=== PATIENT | female | born 1945 | race Caucasian/White ===

== ENCOUNTER 2016-11-11 13:58 | Emergency (ER) | payer OTHER ==
[~2016-11-11] VITALS: Ht 165.1 cm; Wt 94.5 kg
[~2016-11-11 13:58] MED LIST: ALBU18HF INH; ASPI-496 PO; ATOR40TA78 PO; BIOTIN PO; CEFD300C37 PO; CHOL100018 PO; CIPR500T87 PO; CITA20TA9 PO; CLOP75TA PO; LACT1CAP40 PO; LEVO175T2 PO; LISI5TAB7 PO; METR500T PO; OMEP-110 PO; PNV#1COM9 PO; POTASSIUM GLUCONATE PO; PRED20TA PO
[2016-11-11 14:05] VITALS: BP 136/74
[2016-11-11] MEDS ORDERED: ACETAMINOPHEN 325 MG TABLET ONE (14:13)
[2016-11-11] MEDS ORDERED: ONDANSETRON ODT 4 MG ONE (14:14)
[2016-11-11] MEDS ORDERED: ACETAMINOPHEN 325 MG TABLET PO ONE (14:30)
[2016-11-11] MEDS ORDERED: ONDANSETRON ODT 4 MG PO ONE (14:30)
== END 2016-11-11 16:19 | disposition home or self-care (01) ==
LOC: ED 14:49
DX: S06.0X0A Concussion without loss of consciousness, initial encounter (principal); S00.93XA Contusion of unspecified part of head, initial encounter; M25.521 Pain in right elbow; I11.9 Hypertensive heart disease without heart failure; J45.909 Unspecified asthma, uncomplicated; I25.10 Atherosclerotic heart disease of native coronary artery without angina pectoris; Z90.49 Acquired absence of other specified parts of digestive tract; Z90.710 Acquired absence of both cervix and uterus; Z90.81 Acquired absence of spleen; W01.0XXA Fall on same level from slipping, tripping and stumbling without subsequent striking against object, initial encounter; Y93.89 Activity, other specified; Y92.009 Unspecified place in unspecified non-institutional (private) residence as the place of occurrence of the external cause; Y99.9 Unspecified external cause status
CPT/HCPCS: 70450; 72125; 99284; Q0162

== ENCOUNTER 2016-11-25 21:54 | Inpatient (IN) | payer OTHER ==
[~2016-11-25] VITALS: Ht 165.1 cm; Wt 103.1 kg
[2016-11-25] MEDS ORDERED: CITA20TA5 PO (22:05)
[2016-11-25] MEDS ORDERED: ONDANSETRON 2MG/ML, 2ML IVPush ONE (22:30)
[2016-11-25] MEDS ORDERED: HYDROmorphone 1 MG/ML, 1ML IVPush PRN (22:30)
[2016-11-25] MEDS ORDERED: SODIUM CHLORIDE 0.9% 1,000ML IVBOLUS ONE (22:30)
[2016-11-25] MEDS ORDERED: ONDANSETRON 2MG/ML, 2ML ONE (22:41)
[2016-11-25] MEDS ORDERED: MORPHINE SULFATE 4 MG/ML, 1ML ONE (22:42)
[2016-11-25] MEDS ORDERED: HYDROmorphone 1 MG/ML, 1ML ONE (22:54)
[2016-11-25 23:05] LABS: BLOOD UREA NITROGEN 24 mg/dL (7-18)
[2016-11-25 23:12] LABS: ASPARTATE AMINO TRANSFERASE 16 U/L (15-37)
[2016-11-25 23:14] LABS: DIFF TOTAL CELLS COUNTED 100 CELL DIFF
[2016-11-25 23:16] LABS: IS PT STATUS REG ER OR PRE ER? YES
[2016-11-25 23:17] LABS: VERIFY COUNTS? YES
[2016-11-25 23:19] LABS: PATH.CAST-FLAG NOT PRESENT; SPERM-FLAG NOT PRESENT; SRC-FLAG NOT PRESENT; XTAL-FLAG NOT PRESENT; YLC-FLAG NOT PRESENT
[2016-11-25 23:19] LABS: ANISOCYTOSIS 1+; MICROCYTOSIS 1+; OVALOCYTES 1+; POIKILOCYTOSIS 1+; POLYCHROMASIA 1+
[2016-11-25] MEDS ORDERED: OMNIPAQUE 350 MG/ML, 100ML BOTTLE ONE (23:38)
[2016-11-26] MEDS ORDERED: SODIUM CHLORIDE 0.9% 1,000 ML IV ONE (01:13)
[2016-11-26] MEDS ORDERED: ONDANSETRON 2MG/ML, 2ML IVPush PRN ×2 (01:30→02:30)
[2016-11-26] MEDS ORDERED: ENALAPRILAT 1.25 MG/ML, 2ML IVPush PRN (02:30)
[2016-11-26] MEDS ORDERED: SODIUM CHLORIDE 0.9% 1,000ML IVBOLUS ONE (02:30)
[2016-11-26 02:34] VITALS: BP 106/57
[2016-11-26] MEDS: D5%-0.45NACL+KCL 20MEQ 1,000 ML IV SCH ×4 (02:54→22:54)
[2016-11-26] MEDS: ENOXAPARIN 40 MG/0.4 ML SQ SCH (03:41)
[2016-11-26] MEDS: HYDROmorphone 2 MG/ML, 1ML IVPush PRN ×2 (05:59→14:28)
[2016-11-26 06:22] LABS: DIFF TOTAL CELLS COUNTED 100 CELL DIFF
[2016-11-26 06:24] LABS: VERIFY COUNTS? YES
[2016-11-26 06:25] LABS: ANISOCYTOSIS 1+; MICROCYTOSIS 1+; POLYCHROMASIA 1+
[2016-11-26 06:26] LABS: OVALOCYTES 1+
[2016-11-26 06:30] LABS: BLOOD UREA NITROGEN 20 mg/dL (7-18)
[2016-11-26 07:59] VITALS: BP 109/66
[2016-11-26] MEDS: CITALOPRAM 20 MG TABLET PO SCH (09:57)
[2016-11-26] MEDS: OMEPRAZOLE 20 MG CAPSULE.DR PO SCH (09:57)
[2016-11-26] MEDS: ASPIRIN 81 MG TABLET EC PO SCH (09:57)
[2016-11-26] MEDS: LEVOTHYROXINE 88 MCG TABLET PO SCH (09:57)
[2016-11-26 15:27] VITALS: BP 99/60
[2016-11-26 18:46] VITALS: BP 94/47
[2016-11-26] MEDS ORDERED: ATORVASTATIN 40 MG TABLET PO SCH (21:00)
[2016-11-27] MEDS: HYDROmorphone 2 MG/ML, 1ML IVPush PRN (01:02)
[2016-11-27 01:15] VITALS: BP 86/45
[2016-11-27] MEDS ORDERED: D5%-0.45NACL+KCL 20MEQ 1,000 ML IV SCH (02:04)
[2016-11-27 04:57] LABS: BLOOD UREA NITROGEN 15 mg/dL (7-18)
[2016-11-27 05:03] LABS: TOTAL IRON BINDING CAPACITY 315 mcg/dL (250-450); TRANSFERRIN 246 mg/dL (200-360)
[2016-11-27] MEDS: ENOXAPARIN 40 MG/0.4 ML SQ SCH (05:11)
[2016-11-27] MEDS ORDERED: ACETAMINOPHEN 500 MG TABLET PO ONE (07:30)
[2016-11-27 07:54] VITALS: BP 105/65
[2016-11-27] MEDS: ASPIRIN 81 MG TABLET EC PO SCH (08:43)
[2016-11-27] MEDS: LEVOTHYROXINE 88 MCG TABLET PO SCH (08:44)
[2016-11-27] MEDS: OMEPRAZOLE 20 MG CAPSULE.DR PO SCH (08:45)
[2016-11-27] MEDS: CITALOPRAM 20 MG TABLET PO SCH (08:45)
[2016-11-27] MEDS: D5%-0.45NACL+KCL 20MEQ 1,000 ML IV SCH (11:03)
[2016-11-27 13:15] VITALS: BP 124/69
[2016-11-27 18:03] VITALS: BP 130/84
== END 2016-11-27 18:09 | disposition home or self-care (01) | DRG 389 ==
LOC: ED 23:59 → EDIP 11-26 01:13 → 4NOR 11-26 02:19
PROVIDERS: ADMIT Family Medicine; ATTEND Family Medicine
DX: K56.5 Intestinal adhesions [bands] with obstruction (postinfection) (principal); R65.10 Systemic inflammatory response syndrome (SIRS) of non-infectious origin without acute organ dysfunction; R11.10 Vomiting, unspecified; D72.829 Elevated white blood cell count, unspecified; D50.9 Iron deficiency anemia, unspecified; E03.9 Hypothyroidism, unspecified; E78.5 Hyperlipidemia, unspecified; F12.90 Cannabis use, unspecified, uncomplicated; F32.9 Major depressive disorder, single episode, unspecified; G89.29 Other chronic pain; I25.10 Atherosclerotic heart disease of native coronary artery without angina pectoris; I25.2 Old myocardial infarction; K57.90 Diverticulosis of intestine, part unspecified, without perforation or abscess without bleeding; M54.9 Dorsalgia, unspecified; Z66 Do not resuscitate; K21.9 Gastro-esophageal reflux disease without esophagitis; Z85.42 Personal history of malignant neoplasm of other parts of uterus; Z85.71 Personal history of Hodgkin lymphoma; Z85.72 Personal history of non-Hodgkin lymphomas; Z86.73 Personal history of transient ischemic attack (TIA), and cerebral infarction without residual deficits; Z87.891 Personal history of nicotine dependence; Z90.81 Acquired absence of spleen; Z95.5 Presence of coronary angioplasty implant and graft; Z90.49 Acquired absence of other specified parts of digestive tract; Z90.710 Acquired absence of both cervix and uterus; Z87.442 Personal history of urinary calculi; Z90.722 Acquired absence of ovaries, bilateral; Z88.5 Allergy status to narcotic agent; Z88.0 Allergy status to penicillin; Z82.49 Family history of ischemic heart disease and other diseases of the circulatory system; R06.00 Dyspnea, unspecified; R01.1 Cardiac murmur, unspecified
CPT/HCPCS: 36415; 74177; 80048; 80053; 81001; 82040; 82728; 83540; 83550; 83605; 83690; 83735; 84466; 84484; 85025; 87040; 87086; 93005; 96374; 96375; J1170; J1650; J2405; Q9967; J3480; J7030

== ENCOUNTER 2017-02-02 15:32 | Observation (INO) | payer OTHER ==
[~2017-02-02] VITALS: Ht 165.1 cm; Wt 98.2 kg
[~2017-02-02 15:32] MED LIST changes: +CITA20TA5 PO
[2017-02-02] MEDS ORDERED: ONDANSETRON 2MG/ML, 2ML IVPush ONE (16:00)
[2017-02-02] MEDS ORDERED: FAMOTIDINE 20 MG/2 ML IVP ONE (16:00)
[2017-02-02] MEDS ORDERED: SODIUM CHLORIDE 0.9% 1,000ML IVBOLUS ONE (16:00)
[2017-02-02] MEDS ORDERED: HYDROmorphone 1 MG/ML, 1ML IV ONE ×2 (16:00→19:00)
[2017-02-02] MEDS ORDERED: SODIUM CHLORIDE FLUSH 10ML SYR IVF ONE (16:00)
[2017-02-02 16:18] LABS: HEMATOCRIT 39.3 % (34.6-47.8); HEMOGLOBIN 12.4 g/dL (11.7-16.4); WHITE BLOOD COUNT 11.3 x10^3/uL (3.4-10)
[2017-02-02 16:29] LABS: ASPARTATE AMINO TRANSFERASE 15 U/L (15-37); BLOOD UREA NITROGEN 21 mg/dL (7-18)
[2017-02-02] MEDS ORDERED: FAMOTIDINE 20 MG/2 ML ONE (16:33)
[2017-02-02] MEDS ORDERED: ONDANSETRON 2MG/ML, 2ML ONE (16:33)
[2017-02-02] MEDS ORDERED: HYDROmorphone 1 MG/ML, 1ML ONE ×3 (16:33→19:03)
[2017-02-02] MEDS ORDERED: OMNIPAQUE 350 MG/ML, 100ML BOTTLE ONE (17:39)
[2017-02-02] MEDS ORDERED: BISACODYL 10 MG SUPP PR PRN (20:00)
[2017-02-02] MEDS ORDERED: POLYETHYLENE GLYCOL 17 GM PACKET PO PRN (20:00)
[2017-02-02] MEDS ORDERED: ENALAPRILAT 1.25 MG/ML, 2ML IVPush PRN (20:00)
[2017-02-02] MEDS ORDERED: ONDANSETRON 2MG/ML, 2ML IVPush PRN (20:00)
[2017-02-02] MEDS ORDERED: DOCUSATE 100 MG CAPSULE PO PRN (20:00)
[2017-02-02] MEDS ORDERED: ATORVASTATIN 40 MG TABLET PO SCH (21:00)
[2017-02-02] MEDS ORDERED: ENOXAPARIN 40 MG/0.4 ML SQ SCH (21:00)
[2017-02-02 21:26] VITALS: BP 134/72
[2017-02-02] MEDS: HYDROmorphone 2 MG/ML, 1ML IVPush PRN (22:15)
[2017-02-02] MEDS: SODIUM CHLORIDE 0.9% 1,000 ML IV SCH (22:15)
[2017-02-02 22:29] VITALS: BP 134/72
[2017-02-02] MEDS: NYSTATIN CRM 15GM TP SCH (23:06)
[2017-02-03] MEDS: HYDROmorphone 2 MG/ML, 1ML IVPush PRN (01:17)
[2017-02-03 02:14] VITALS: BP 127/78
[2017-02-03] MEDS: SODIUM CHLORIDE 0.9% 1,000 ML IV SCH ×2 (05:19→11:09)
[2017-02-03] MEDS ORDERED: HYDROcodone/APAP 5/325 TABLET PO PRN (06:00)
[2017-02-03] MEDS ORDERED: LEVOTHYROXINE 88 MCG TABLET PO SCH (06:00)
[2017-02-03 06:02] LABS: HEMATOCRIT 32.3 % (34.6-47.8); HEMOGLOBIN 10.4 g/dL (11.7-16.4); WHITE BLOOD COUNT 13.6 x10^3/uL (3.4-10)
[2017-02-03 06:09] LABS: BLOOD UREA NITROGEN 19 mg/dL (7-18)
[2017-02-03 06:14] LABS: ASPARTATE AMINO TRANSFERASE 28 U/L (15-37)
[2017-02-03] MEDS ORDERED: OMEPRAZOLE 20 MG CAPSULE.DR PO SCH (07:30)
[2017-02-03 07:41] VITALS: BP 89/45
[2017-02-03] MEDS: NYSTATIN CRM 15GM TP SCH (08:43)
[2017-02-03] MEDS ORDERED: CITALOPRAM 20 MG TABLET PO SCH (09:00)
[2017-02-03] MEDS ORDERED: ASPIRIN 81 MG TABLET EC PO SCH (09:00)
[2017-02-03] MEDS ORDERED: SENNA/DOCUSATE TABLET PO SCH (09:00)
[2017-02-03] MEDS ORDERED: CLOPIDOGREL 75 MG TABLET PO SCH (09:00)
[2017-02-03] MEDS ORDERED: ACETAMINOPHEN 325 MG TABLET PO PRN (11:00)
[2017-02-03 13:32] VITALS: BP 97/61
== END 2017-02-03 14:24 | disposition home or self-care (01) ==
LOC: ED 17:31 → EDIP 18:37 → INTOOBSV 18:37 → 4NOR 20:46 → DCLOUNGE 02-03 14:01
PROVIDERS: ATTEND Family Medicine
DX: K43.2 Incisional hernia without obstruction or gangrene (principal); I25.10 Atherosclerotic heart disease of native coronary artery without angina pectoris; E03.9 Hypothyroidism, unspecified; F32.9 Major depressive disorder, single episode, unspecified; K21.9 Gastro-esophageal reflux disease without esophagitis; R21 Rash and other nonspecific skin eruption; D72.829 Elevated white blood cell count, unspecified; E78.5 Hyperlipidemia, unspecified; I25.2 Old myocardial infarction; I11.0 Hypertensive heart disease with heart failure; E10.9 Type 1 diabetes mellitus without complications; Z85.42 Personal history of malignant neoplasm of other parts of uterus; Z85.71 Personal history of Hodgkin lymphoma; Z86.73 Personal history of transient ischemic attack (TIA), and cerebral infarction without residual deficits; Z87.442 Personal history of urinary calculi; Z87.891 Personal history of nicotine dependence; Z90.81 Acquired absence of spleen; Z79.4 Long term (current) use of insulin; Z90.49 Acquired absence of other specified parts of digestive tract
CPT/HCPCS: 36415; 74177; 80053; 81003; 83690; 85025; 96361; 96372; 96374; 96375; 96376; 99285; G0378; J1170; J1650; J2405; J7030; Q9967; S0028

== ENCOUNTER 2017-02-09 22:32 | Inpatient (IN) | payer OTHER ==
[~2017-02-09] VITALS: Ht 165.1 cm; Wt 104.9 kg
[~2017-02-09 22:32] MED LIST changes: +CHOL100012 PO; -CHOL100018 PO
[2017-02-09] MEDS ORDERED: SODIUM CHLORIDE FLUSH 10ML SYR IVF ONE (23:00)
[2017-02-09] MEDS ORDERED: SODIUM CHLORIDE 0.9% 1,000ML IVBOLUS ONE (23:00)
[2017-02-09 23:28] LABS: HEMATOCRIT 39.7 % (34.6-47.8); HEMOGLOBIN 12.3 g/dL (11.7-16.4); WHITE BLOOD COUNT 12.8 x10^3/uL (3.4-10)
[2017-02-09] MEDS ORDERED: FENTANYL PF 100 MCG/2ML IVPush PRN (23:30)
[2017-02-09 23:41] LABS: ASPARTATE AMINO TRANSFERASE 16 U/L (15-37); BLOOD UREA NITROGEN 17 mg/dL (7-18)
[2017-02-09] MEDS ORDERED: FENTANYL PF 100 MCG/2ML ONE (23:53)
[2017-02-10] MEDS ORDERED: OMNIPAQUE 350 MG/ML, 100ML BOTTLE ONE (00:08)
[2017-02-10] MEDS ORDERED: HYDROmorphone 1 MG/ML, 1ML IVPush PRN (01:00)
[2017-02-10] MEDS ORDERED: HYDROmorphone 1 MG/ML, 1ML ONE (01:21)
[2017-02-10] MEDS ORDERED: SODIUM CHLORIDE 0.9% 1,000 ML IV SCH (01:28)
[2017-02-10] MEDS ORDERED: hydrALAzine 20 MG/ML, 1ML IVPush PRN (01:30)
[2017-02-10] MEDS ORDERED: ONDANSETRON 2MG/ML, 2ML IVPush PRN (01:30)
[2017-02-10] MEDS: HYDROmorphone 2 MG/ML, 1ML IVPush PRN ×4 (01:33→09:40)
[2017-02-10 02:46] VITALS: BP 154/82
[2017-02-10] MEDS: ENOXAPARIN 40 MG/0.4 ML SQ SCH (02:59)
[2017-02-10 06:18] LABS: HEMOGLOBIN 10.5 g/dL (11.7-16.4); WHITE BLOOD COUNT 13.3 x10^3/uL (3.4-10)
[2017-02-10 06:31] LABS: BLOOD UREA NITROGEN 18 mg/dL (7-18)
[2017-02-10 08:38] VITALS: BP 128/65
[2017-02-10] MEDS: POTASSIUM CHLORIDE 30 MEQ in SODIUM CHLORIDE 0.9% 1,000 ML IV SCH ×3 (08:38→23:59)
[2017-02-10 13:14] VITALS: BP 127/77
[2017-02-10 20:00] VITALS: BP 151/74
[2017-02-11 02:05] VITALS: BP 128/67
[2017-02-11 05:19] LABS: BLOOD UREA NITROGEN 9 mg/dL (7-18)
[2017-02-11 06:22] LABS: HEMATOCRIT 32.9 % (34.6-47.8); HEMOGLOBIN 10.4 g/dL (11.7-16.4); WHITE BLOOD COUNT 8.4 x10^3/uL (3.4-10)
[2017-02-11] MEDS ORDERED: LEVOTHYROXINE 88 MCG TABLET PO SCH (06:53)
[2017-02-11 06:57] VITALS: BP 150/80
[2017-02-11] MEDS: POTASSIUM CHLORIDE 30 MEQ in SODIUM CHLORIDE 0.9% 1,000 ML IV SCH ×2 (07:15→14:30)
[2017-02-11] MEDS: ENOXAPARIN 40 MG/0.4 ML SQ SCH (08:11)
[2017-02-11] MEDS ORDERED: CITALOPRAM 20 MG TABLET PO SCH (09:00)
[2017-02-11 12:03] VITALS: BP 149/71
[2017-02-11] MEDS ORDERED: ATORVASTATIN 40 MG TABLET PO SCH (21:00)
[2017-02-17] MEDS ORDERED: POTA99TA2 PO (15:30)
== END 2017-02-11 16:10 | disposition home or self-care (01) | DRG 389 ==
LOC: ED 23:59 → EDIP 02-10 01:22 → 4NOR 02-10 02:10
PROVIDERS: ADMIT Family Medicine; ATTEND Family Medicine
DX: K56.60 Unspecified intestinal obstruction (principal); E44.1 Mild protein-calorie malnutrition; I10 Essential (primary) hypertension; E03.9 Hypothyroidism, unspecified; G89.29 Other chronic pain; F32.9 Major depressive disorder, single episode, unspecified; E78.5 Hyperlipidemia, unspecified; I25.10 Atherosclerotic heart disease of native coronary artery without angina pectoris; M54.9 Dorsalgia, unspecified; R73.03 Prediabetes; K21.9 Gastro-esophageal reflux disease without esophagitis; Z79.82 Long term (current) use of aspirin; Z85.71 Personal history of Hodgkin lymphoma; Z86.73 Personal history of transient ischemic attack (TIA), and cerebral infarction without residual deficits; Z85.42 Personal history of malignant neoplasm of other parts of uterus; Z87.891 Personal history of nicotine dependence; Z90.81 Acquired absence of spleen; Z95.5 Presence of coronary angioplasty implant and graft; Z87.01 Personal history of pneumonia (recurrent); Z87.440 Personal history of urinary (tract) infections; Z88.0 Allergy status to penicillin; Z88.5 Allergy status to narcotic agent; Z90.49 Acquired absence of other specified parts of digestive tract; Z90.710 Acquired absence of both cervix and uterus; Z82.49 Family history of ischemic heart disease and other diseases of the circulatory system
CPT/HCPCS: 36415; 74000; 74177; 80048; 80053; 81001; 83605; 83690; 85025; 87086; 93005; 96361; 96374; 96375; J1170; J1650; J3010; J3480; Q9967; J7030

== ENCOUNTER 2017-02-24 06:12 | Observation (INO) | payer OTHER ==
[2017-02-17 15:19] VITALS: BP 129/70
[~2017-02-24] VITALS: Ht 167.6 cm; Wt 102.3 kg
[~2017-02-24 06:12] MED LIST changes: +POTA99TA2 PO
[2017-02-24] MEDS ORDERED: LIDOCAINE 1%, 2ML ONE (06:45)
[2017-02-24] MEDS ORDERED: LACTATED RINGERS 1,000 ML IV SCH (07:00)
[2017-02-24] MEDS ORDERED: LIDOCAINE 1%, 2ML SQ PRN (07:00)
[2017-02-24] MEDS ORDERED: BUPIVACAINE/PF 0.5% ONE (07:03)
[2017-02-24] MEDS ORDERED: EPINEPHRINE 1 MG/ML, 1ML ONE (07:04)
[2017-02-24] MEDS ORDERED: cloniDINE/PF 100 MCG/ML, 10 ML ONE (07:09)
[2017-02-24] MEDS ORDERED: BUPIVACAINE/PF 0.25% ONE (07:10)
[2017-02-24] MEDS ORDERED: MIDAZOLAM 1 MG/ML, 2ML ONE (07:13)
[2017-02-24] MEDS ORDERED: FENTANYL PF 100 MCG/2ML ONE ×2 (07:13→10:02)
[2017-02-24] MEDS ORDERED: EPHEDRINE 50 MG/ML, 1ML ONE (07:32)
[2017-02-24] MEDS ORDERED: METOPROLOL 1 MG/ML, 5ML ONE (07:32)
[2017-02-24] MEDS ORDERED: ONDANSETRON 2MG/ML, 2ML ONE (07:32)
[2017-02-24] MEDS ORDERED: ROCURONIUM 10 MG/ML ONE (07:32)
[2017-02-24] MEDS ORDERED: PROPOFOL 10 MG/ML, 20ML ONE (07:32)
[2017-02-24] MEDS ORDERED: DEXAMETHASONE 4 MG/ML, 1ML ONE (07:32)
[2017-02-24] MEDS ORDERED: CEFAZOLIN 1,000 MG ONE (07:32)
[2017-02-24] MEDS ORDERED: MEPERIDINE/PF 25MG/0.5ML IVPush PRN (08:30)
[2017-02-24] MEDS ORDERED: LABETALOL 5MG/ML, 20ML IV PRN (08:30)
[2017-02-24] MEDS ORDERED: OXYcodone 5 MG/5 ML ORAL.SOL UDC PO PRN ×2 (08:30→13:30)
[2017-02-24] MEDS ORDERED: ACETAMINOPHEN 325 MG TABLET PO PRN (08:30)
[2017-02-24] MEDS ORDERED: hydrALAzine 20 MG/ML, 1ML IV PRN (08:30)
[2017-02-24] MEDS ORDERED: HYDROmorphone 1 MG/ML, 1ML ONE ×2 (10:02→10:48)
[2017-02-24] MEDS: FENTANYL PF 100 MCG/2ML IV PRN ×2 (10:05→10:30)
[2017-02-24] MEDS: HYDROmorphone 1 MG/ML, 1ML IV PRN ×7 (10:10→11:05)
[2017-02-24] MEDS ORDERED: DIPHENHYDRAMINE 25 MG CAPSULE PO PRN (13:30)
[2017-02-24] MEDS ORDERED: HYDROmorphone 1 MG/ML, 1ML IV PRN (13:30)
[2017-02-24] MEDS ORDERED: DIPHENHYDRAMINE 50 MG/ML, 1ML IV PRN (13:30)
[2017-02-24] MEDS: POTASSIUM CHLORIDE 20 MEQ in D5%-0.45% NACL 1,000 ML IV SCH (13:45)
[2017-02-24] MEDS: ACETAMINOPHEN 500 MG TABLET PO SCH ×2 (13:45→19:48)
[2017-02-24 14:15] VITALS: BP 97/60
[2017-02-24] MEDS: IBUPROFEN 600 MG TABLET PO SCH ×2 (17:47→22:23)
[2017-02-24 19:22] VITALS: BP 108/67
[2017-02-24] MEDS: SODIUM CHLORIDE FLUSH 10ML SYR IVF SCH (19:49)
[2017-02-24] MEDS ORDERED: ATORVASTATIN 40 MG TABLET PO SCH (21:00)
[2017-02-25 00:24] VITALS: BP 110/66
[2017-02-25] MEDS: ACETAMINOPHEN 500 MG TABLET PO SCH ×2 (01:26→08:14)
[2017-02-25 03:05] VITALS: BP 99/62
[2017-02-25] MEDS ORDERED: LEVOTHYROXINE 88 MCG TABLET PO SCH (06:00)
[2017-02-25 06:30] VITALS: BP 114/67
[2017-02-25] MEDS ORDERED: OMEPRAZOLE 20 MG CAPSULE.DR PO SCH (07:30)
[2017-02-25] MEDS: SODIUM CHLORIDE FLUSH 10ML SYR IVF SCH (08:12)
[2017-02-25] MEDS: IBUPROFEN 600 MG TABLET PO SCH (08:14)
[2017-02-25] MEDS ORDERED: CITALOPRAM 20 MG TABLET PO SCH (09:00)
[2017-02-25] MEDS: POTASSIUM CHLORIDE 20 MEQ in D5%-0.45% NACL 1,000 ML IV SCH (09:42)
[2017-02-25] MEDS ORDERED: OXYC-302 PO (11:08)
[2017-02-25] MEDS ORDERED: ACET-76 PO (11:11)
[2017-02-25] MEDS ORDERED: IBUP-1222 PO (11:11)
[2017-02-25] MEDS ORDERED: DIPH25CA61 PO (11:12)
== END 2017-02-25 12:25 | disposition home or self-care (01) ==
LOC: OUT 06:12 → 4NOR 12:01 → OUT 12:50 → DCLOUNGE 02-25 11:52
PROVIDERS: ADMIT Surgery; ATTEND Surgery
DX: K43.2 Incisional hernia without obstruction or gangrene (principal); I10 Essential (primary) hypertension; F32.9 Major depressive disorder, single episode, unspecified; E78.00 Pure hypercholesterolemia, unspecified; K21.9 Gastro-esophageal reflux disease without esophagitis
CPT/HCPCS: 49653; 74000; 96374; C1781; G0378; J0690; J0735; J1100; J1170; J1200; J2250; J2405; J2704; J3010; J3480; J3490; J7120; S2900; J0171

== ENCOUNTER 2017-06-01 00:41 | Emergency (ER) | payer OTHER ==
[~2017-06-01] VITALS: Ht 165.1 cm; Wt 95.0 kg
[~2017-06-01 00:41] MED LIST changes: +ACET-76 PO; +DIPH25CA61 PO; +IBUP-1222 PO; +OXYC-302 PO
[2017-06-01] MEDS ORDERED: SODIUM CHLORIDE 0.9% 1,000ML IVBOLUS ONE (01:00)
[2017-06-01] MEDS ORDERED: ONDANSETRON 2MG/ML, 2ML IVPush ONE (01:00)
[2017-06-01] MEDS ORDERED: SODIUM CHLORIDE FLUSH 10ML SYR IVF ONE (01:00)
[2017-06-01] MEDS ORDERED: HYDROmorphone 1 MG/ML, 1ML IVPush PRN (01:00)
[2017-06-01] MEDS ORDERED: HYDROmorphone 2 MG/ML, 1ML ONE (01:04)
[2017-06-01] MEDS ORDERED: ONDANSETRON 2MG/ML, 2ML ONE (01:04)
[2017-06-01 01:25] LABS: HEMATOCRIT 38.3 % (34.6-47.8); HEMOGLOBIN 12.3 g/dL (11.7-16.4); WHITE BLOOD COUNT 12.7 x10^3/uL (3.4-10)
[2017-06-01 01:38] LABS: ASPARTATE AMINO TRANSFERASE 89 U/L (15-37); BLOOD UREA NITROGEN 22 mg/dL (7-18)
[2017-06-01] MEDS ORDERED: OMNIPAQUE 350 MG/ML, 100ML BOTTLE ONE (02:07)
[2017-06-01 03:11] VITALS: BP 117/62
== END 2017-06-01 03:43 | disposition home or self-care (01) ==
LOC: ED 01:59
DX: R10.84 Generalized abdominal pain (principal); J44.9 Chronic obstructive pulmonary disease, unspecified; E03.9 Hypothyroidism, unspecified; E78.5 Hyperlipidemia, unspecified; K21.9 Gastro-esophageal reflux disease without esophagitis; I25.10 Atherosclerotic heart disease of native coronary artery without angina pectoris; Z86.73 Personal history of transient ischemic attack (TIA), and cerebral infarction without residual deficits; Z90.49 Acquired absence of other specified parts of digestive tract; Z90.710 Acquired absence of both cervix and uterus
CPT/HCPCS: 36415; 74177; 80053; 81001; 83690; 85025; 87086; 96361; 96374; 96375; 99285; J1170; J2405; J7030; Q9967

== ENCOUNTER 2017-08-15 00:48 | Emergency (ER) | payer OTHER ==
[~2017-08-15] VITALS: Ht 167.6 cm; Wt 103.1 kg
[2017-08-15] MEDS ORDERED: ASPIRIN 81 MG TABLET CHEW PO ONE (01:30)
[2017-08-15 01:52] LABS: BASOPHILS # (AUTO) 0.07 x10^3/uL (0-0.1); BASOPHILS % (AUTO) 1 % (0-1); EOSINOPHILS # (AUTO) 0.37 x10^3/uL (0-0.4); EOSINOPHILS % (AUTO) 3 % (1-7); LYMPHOCYTES # (AUTO) 2.93 x10^3/uL (1-3.4); LYMPHOCYTES % (AUTO) 27 % (22-44); MD NO; MEAN CORPUSCULAR HGB CONC 31.6 g/dL (32.4-35.8); MEAN CORPUSCULAR VOLUME 79.3 fL (80-100); MEAN PLATELET VOLUME 8.9 fL (7.4-10.4); MONOCYTES # (AUTO) 1.02 x10^3/uL (0.2-0.8); MONOCYTES % (AUTO) 10 % (2-9); NEUTROPHILS # (AUTO) 6.29 x10^3/uL (1.8-6.8); NEUTROPHILS % (AUTO) 59 % (42-75); PLATELET COUNT 437 x10^3/uL (130-400); RED BLOOD COUNT 4.66 x10^6/uL (3.82-5.3)
[2017-08-15] MEDS ORDERED: MAALOX/HYOSCYAMINE/LIDOCAINE 45 ML BTL ONE (01:54)
[2017-08-15] MEDS ORDERED: MAALOX/HYOSCYAMINE/LIDOCAINE 45 ML BTL PO ONE (02:00)
[2017-08-15 02:04] LABS: ALBUMIN 3.1 g/dL (3.4-5.0); ANION GAP 8 mmol/L (5-15); CALCIUM 8.4 mg/dL (8.5-10.1); CHLORIDE 110 mmol/L (98-107)
[2017-08-15 02:09] LABS: ALANINE AMINOTRANSFERASE 12 U/L (12-78); ALKALINE PHOSPHATASE 140 U/L (45-117); BILIRUBIN,TOTAL 0.5 mg/dL (0.2-1.0); CREATININE 1.03 mg/dL (0.55-1.02); TOTAL PROTEIN 6.5 g/dL (6.4-8.2); TROPONIN I < 0.015 ng/mL (0.000-0.045)
[2017-08-15 03:06] VITALS: BP 134/69
== END 2017-08-15 03:21 | disposition home or self-care (01) ==
LOC: ED 01:02
DX: R10.13 Epigastric pain (principal); E78.5 Hyperlipidemia, unspecified; E03.9 Hypothyroidism, unspecified; I25.2 Old myocardial infarction
CPT/HCPCS: 36415; 71045; 80053; 83690; 84484; 85025; 93005; 99285

== ENCOUNTER 2017-11-22 20:27 | Inpatient (IN) | payer OTHER ==
[~2017-11-22] VITALS: Ht 165.1 cm; Wt 102.1 kg
[2017-11-22] MEDS ORDERED: SODIUM CHLORIDE 0.9% 1,000 ML IV ONE (20:47)
[2017-11-22] MEDS ORDERED: SODIUM CHLORIDE FLUSH 10ML SYR IVF ONE (21:00)
[2017-11-22] MEDS ORDERED: ONDANSETRON ODT 4 MG PO ONE (21:00)
[2017-11-22 21:07] LABS: BASOPHILS # (AUTO) 0.02 x10^3/uL (0-0.1); BASOPHILS % (AUTO) 0 % (0-1); EOSINOPHILS % (AUTO) 3 % (1-7); LYMPHOCYTES # (AUTO) 2.47 x10^3/uL (1-3.4); LYMPHOCYTES % (AUTO) 21 % (22-44); MD NO; MEAN CORPUSCULAR HEMOGLOBIN 25.1 pg (27.0-34.8); MEAN CORPUSCULAR HGB CONC 32.4 g/dL (32.4-35.8); MEAN CORPUSCULAR VOLUME 77.5 fL (80-100); MEAN PLATELET VOLUME 9.1 fL (7.4-10.4); MONOCYTES # (AUTO) 1.01 x10^3/uL (0.2-0.8); MONOCYTES % (AUTO) 9 % (2-9); NEUTROPHILS # (AUTO) 7.73 x10^3/uL (1.8-6.8); NEUTROPHILS % (AUTO) 67 % (42-75); PLATELET COUNT 424 x10^3/uL (130-400); RED BLOOD COUNT 4.68 x10^6/uL (3.82-5.3); RED CELL DISTRIBUTION WIDTH 19.3 % (9.6-15.2)
[2017-11-22] MEDS ORDERED: ONDANSETRON ODT 4 MG ONE (21:08)
[2017-11-22 21:19] LABS: ALANINE AMINOTRANSFERASE 16 U/L (12-78); ALBUMIN 2.9 g/dL (3.4-5.0); ANION GAP 8 mmol/L (5-15); CALCIUM 8.9 mg/dL (8.5-10.1); CHLORIDE 109 mmol/L (98-107); CREATININE 0.85 mg/dL (0.55-1.02)
[2017-11-22 21:22] LABS: ALKALINE PHOSPHATASE 139 U/L (45-117); BILIRUBIN,TOTAL 0.5 mg/dL (0.2-1.0); TOTAL PROTEIN 6.3 g/dL (6.4-8.2)
[2017-11-22] MEDS ORDERED: HYDROmorphone 2 MG/ML, 1ML ONE (22:12)
[2017-11-22] MEDS ORDERED: HYDROmorphone 2 MG/ML, 1ML IVPush ONE (22:30)
[2017-11-22] MEDS ORDERED: OMNIPAQUE 350 MG/ML, 100ML BOTTLE ONE (22:37)
[2017-11-22] MEDS ORDERED: POTASSIUM CHLORIDE 20 MEQ TAB.ER.PRT ONE (23:26)
[2017-11-22] MEDS ORDERED: POTASSIUM CHLORIDE 20 MEQ TAB.ER.PRT PO ONE (23:30)
[2017-11-23] MEDS ORDERED: D5%-0.45% NACL 1,000 ML IV SCH (00:12)
[2017-11-23] MEDS ORDERED: DOCUSATE 100 MG CAPSULE PO PRN (00:30)
[2017-11-23] MEDS ORDERED: LABETALOL 5MG/ML, 20ML IVPush PRN (00:30)
[2017-11-23] MEDS ORDERED: HYDROmorphone 2 MG/ML, 1ML IVPush PRN (00:30)
[2017-11-23] MEDS ORDERED: ONDANSETRON ODT 4 MG PO PRN (00:30)
[2017-11-23] MEDS ORDERED: BISACODYL 10 MG SUPP PR PRN (00:30)
[2017-11-23] MEDS ORDERED: ENALAPRILAT 1.25 MG/ML, 2ML IVPush PRN (00:30)
[2017-11-23] MEDS ORDERED: ONDANSETRON 2MG/ML, 2ML IVPush PRN (00:30)
[2017-11-23] MEDS: ENOXAPARIN 40 MG/0.4 ML SQ SCH (00:53)
[2017-11-23 03:30] VITALS: BP 128/84
[2017-11-23] MEDS ORDERED: ALBUTEROL SULFATE 2.5 MG/3 ML NPPB PRN ×2 (04:30→21:30)
[2017-11-23 05:05] VITALS: BP 128/84
[2017-11-23 06:26] VITALS: BP 107/60
[2017-11-23 12:36] VITALS: BP 104/58
[2017-11-23] MEDS: D5%-0.45% NACL 1,000 ML IV SCH (12:59)
[2017-11-23 19:43] VITALS: BP 92/57
[2017-11-24] MEDS ORDERED: D5%-0.45% NACL 1,000 ML IV SCH (00:12)
[2017-11-24] MEDS: ENOXAPARIN 40 MG/0.4 ML SQ SCH (01:14)
[2017-11-24 02:30] VITALS: BP 117/72
[2017-11-24 05:08] LABS: ALANINE AMINOTRANSFERASE 35 U/L (12-78); ALBUMIN 2.7 g/dL (3.4-5.0); ANION GAP 7 mmol/L (5-15); CALCIUM 8.2 mg/dL (8.5-10.1); CHLORIDE 110 mmol/L (98-107); CREATININE 0.82 mg/dL (0.55-1.02)
[2017-11-24 05:10] LABS: ALKALINE PHOSPHATASE 155 U/L (45-117); BILIRUBIN,TOTAL 0.5 mg/dL (0.2-1.0); TOTAL PROTEIN 5.8 g/dL (6.4-8.2)
[2017-11-24 05:11] LABS: BASOPHILS # (AUTO) 0.05 x10^3/uL (0-0.1); BASOPHILS % (AUTO) 1 % (0-1); EOSINOPHILS # (AUTO) 0.27 x10^3/uL (0-0.4); EOSINOPHILS % (AUTO) 3 % (1-7); LYMPHOCYTES # (AUTO) 2.76 x10^3/uL (1-3.4); LYMPHOCYTES % (AUTO) 31 % (22-44); MD NO; MEAN CORPUSCULAR HGB CONC 31.7 g/dL (32.4-35.8); MEAN CORPUSCULAR VOLUME 78.9 fL (80-100); MEAN PLATELET VOLUME 9.1 fL (7.4-10.4); MONOCYTES % (AUTO) 9 % (2-9); NEUTROPHILS # (AUTO) 4.93 x10^3/uL (1.8-6.8); NEUTROPHILS % (AUTO) 56 % (42-75); PLATELET COUNT 389 x10^3/uL (130-400); RED BLOOD COUNT 4.33 x10^6/uL (3.82-5.3); RED CELL DISTRIBUTION WIDTH 19.2 % (9.6-15.2)
[2017-11-24 07:02] VITALS: BP 104/52
[2017-11-24] MEDS: D5%-0.45% NACL 1,000 ML IV SCH (13:32)
[2017-11-24 13:35] VITALS: BP 112/68
[2017-12-01] MEDS ORDERED: CITA20TA9 PO (17:28)
[2017-12-04] MEDS ORDERED: SUCR1ORA5 PO (13:34)
== END 2017-11-24 14:21 | disposition home or self-care (01) | DRG 388 ==
LOC: ED 23:30 → EDIP 23:59 → 3NE 11-23 00:37
PROVIDERS: ADMIT Family Medicine; ATTEND Family Medicine
DX: K56.51 Intestinal adhesions [bands], with partial obstruction (principal); E43 Unspecified severe protein-calorie malnutrition; F19.20 Other psychoactive substance dependence, uncomplicated; E03.9 Hypothyroidism, unspecified; I25.10 Atherosclerotic heart disease of native coronary artery without angina pectoris; K21.9 Gastro-esophageal reflux disease without esophagitis; E10.9 Type 1 diabetes mellitus without complications; E78.5 Hyperlipidemia, unspecified; I11.0 Hypertensive heart disease with heart failure; I50.9 Heart failure, unspecified; J44.9 Chronic obstructive pulmonary disease, unspecified; K43.2 Incisional hernia without obstruction or gangrene; Z79.4 Long term (current) use of insulin; Z85.42 Personal history of malignant neoplasm of other parts of uterus; Z85.71 Personal history of Hodgkin lymphoma; I25.2 Old myocardial infarction; Z85.72 Personal history of non-Hodgkin lymphomas; Z86.73 Personal history of transient ischemic attack (TIA), and cerebral infarction without residual deficits; Z87.442 Personal history of urinary calculi; Z90.710 Acquired absence of both cervix and uterus; Z90.81 Acquired absence of spleen; Z95.5 Presence of coronary angioplasty implant and graft; Z88.0 Allergy status to penicillin; Z88.6 Allergy status to analgesic agent; Z90.49 Acquired absence of other specified parts of digestive tract; F32.9 Major depressive disorder, single episode, unspecified; G89.29 Other chronic pain; Z90.722 Acquired absence of ovaries, bilateral
CPT/HCPCS: 36415; 74177; 80053; 83690; 85025; 93005; 96361; 96374; 99285; J1170; J1650; Q0162; Q9967; J7030

== ENCOUNTER 2017-11-28 23:47 | Emergency (ER) | payer OTHER ==
[~2017-11-28] VITALS: Ht 165.1 cm; Wt 100.0 kg
[2017-11-29] MEDS ORDERED: SODIUM CHLORIDE FLUSH 10ML SYR IVF ONE
[2017-11-29 00:15] LABS: BASOPHILS # (AUTO) 0.07 x10^3/uL (0-0.1); BASOPHILS % (AUTO) 1 % (0-1); EOSINOPHILS # (AUTO) 0.35 x10^3/uL (0-0.4); EOSINOPHILS % (AUTO) 4 % (1-7); LYMPHOCYTES # (AUTO) 3.24 x10^3/uL (1-3.4); LYMPHOCYTES % (AUTO) 33 % (22-44); MD NO; MEAN CORPUSCULAR HEMOGLOBIN 25.4 pg (27.0-34.8); MEAN CORPUSCULAR HGB CONC 32.4 g/dL (32.4-35.8); MEAN CORPUSCULAR VOLUME 78.4 fL (80-100); MEAN PLATELET VOLUME 8.6 fL (7.4-10.4); MONOCYTES # (AUTO) 0.95 x10^3/uL (0.2-0.8); MONOCYTES % (AUTO) 10 % (2-9); NEUTROPHILS # (AUTO) 5.32 x10^3/uL (1.8-6.8); NEUTROPHILS % (AUTO) 54 % (42-75); PLATELET COUNT 457 x10^3/uL (130-400); RED BLOOD COUNT 4.61 x10^6/uL (3.82-5.3); RED CELL DISTRIBUTION WIDTH 19.7 % (9.6-15.2)
[2017-11-29 00:27] LABS: ALANINE AMINOTRANSFERASE 23 U/L (12-78); ALBUMIN 2.9 g/dL (3.4-5.0); ANION GAP 9 mmol/L (5-15); CALCIUM 8.7 mg/dL (8.5-10.1); CHLORIDE 110 mmol/L (98-107); CREATININE 1.02 mg/dL (0.55-1.02)
[2017-11-29 00:30] LABS: ALKALINE PHOSPHATASE 139 U/L (45-117); BILIRUBIN,TOTAL 0.3 mg/dL (0.2-1.0); TOTAL PROTEIN 6.1 g/dL (6.4-8.2)
[2017-11-29 01:15] VITALS: BP 152/72
[2017-12-01] MEDS ORDERED: CITA20TA9 PO (17:28)
== END 2017-11-29 01:46 | disposition home or self-care (01) ==
LOC: ED 23:59
DX: R10.13 Epigastric pain (principal); K21.9 Gastro-esophageal reflux disease without esophagitis; G89.29 Other chronic pain; I10 Essential (primary) hypertension; E03.9 Hypothyroidism, unspecified; J45.909 Unspecified asthma, uncomplicated; I25.2 Old myocardial infarction; I25.10 Atherosclerotic heart disease of native coronary artery without angina pectoris; E78.5 Hyperlipidemia, unspecified
CPT/HCPCS: 36415; 74021; 80053; 83690; 85025; 99285

== ENCOUNTER 2018-01-19 22:48 | Emergency (ER) | payer OTHER ==
[~2018-01-19] VITALS: Ht 165.1 cm; Wt 101.5 kg
[~2018-01-19 22:48] MED LIST changes: -CITA20TA5 PO; +CITA20TA6 PO; +SUCR1ORA5 PO
[2018-01-19 22:50] VITALS: BP 152/82
[2018-01-19] MEDS ORDERED: PROPARACAINE OPHTH 0.5%, 15ML ONE (22:59)
[2018-01-19] MEDS ORDERED: PROPARACAINE OPHTH 0.5%, 15ML LEFTEYE ONE (23:00)
[2018-01-19] MEDS ORDERED: DIPH,PERTUSS(ACELL),TET VAC/PF 0.5 ML IM-VACC ONE ×2 (23:21→23:30)
== END 2018-01-19 23:29 | disposition home or self-care (01) ==
LOC: ED 22:56
DX: S05.02XA Injury of conjunctiva and corneal abrasion without foreign body, left eye, initial encounter (principal); W20.8XXA Other cause of strike by thrown, projected or falling object, initial encounter; Y93.89 Activity, other specified; Y99.8 Other external cause status; Y92.89 Other specified places as the place of occurrence of the external cause
CPT/HCPCS: 90471; 90715; 99283

== ENCOUNTER 2018-04-02 19:07 | Inpatient (IN) | payer OTHER ==
[~2018-04-02] VITALS: Ht 165.1 cm; Wt 102.4 kg
[2018-04-02] MEDS ORDERED: SODIUM CHLORIDE 0.9% 1,000 ML IV ONE ×2 (19:19→21:43)
[2018-04-02] MEDS ORDERED: SODIUM CHLORIDE FLUSH 10ML SYR IVF ONE (19:30)
[2018-04-02] MEDS ORDERED: HYDROmorphone 2 MG/ML, 1ML ONE ×2 (19:30→21:01)
[2018-04-02] MEDS: HYDROmorphone 2 MG/ML, 1ML IVPush PRN ×2 (19:36→21:04)
[2018-04-02 19:47] LABS: BASOPHILS # (AUTO) 0.01 x10^3/uL (0-0.1); BASOPHILS % (AUTO) 0 % (0-1); EOSINOPHILS % (AUTO) 3 % (1-7); LYMPHOCYTES # (AUTO) 1.74 x10^3/uL (1-3.4); LYMPHOCYTES % (AUTO) 14 % (22-44); MD NO; MEAN CORPUSCULAR HEMOGLOBIN 24.9 pg (27.0-34.8); MEAN CORPUSCULAR HGB CONC 31.6 g/dL (32.4-35.8); MEAN CORPUSCULAR VOLUME 78.7 fL (80-100); MEAN PLATELET VOLUME 9.4 fL (7.4-10.4); MONOCYTES % (AUTO) 9 % (2-9); NEUTROPHILS # (AUTO) 8.83 x10^3/uL (1.8-6.8); NEUTROPHILS % (AUTO) 73 % (42-75); PLATELET COUNT 428 x10^3/uL (130-400); RED BLOOD COUNT 5.08 x10^6/uL (3.82-5.3); RED CELL DISTRIBUTION WIDTH 18.8 % (9.6-15.2)
[2018-04-02 19:56] LABS: ALANINE AMINOTRANSFERASE 22 U/L (12-78); ALBUMIN 3.5 g/dL (3.4-5.0); ANION GAP 7 mmol/L (5-15); CALCIUM 8.3 mg/dL (8.5-10.1); CHLORIDE 109 mmol/L (98-107); CREATININE 0.91 mg/dL (0.55-1.02)
[2018-04-02 19:58] LABS: ALKALINE PHOSPHATASE 162 U/L (45-117); BILIRUBIN,TOTAL 0.5 mg/dL (0.2-1.0); TOTAL PROTEIN 7.3 g/dL (6.4-8.2)
[2018-04-02] MEDS ORDERED: OMNIPAQUE 350 MG/ML, 100ML BOTTLE ONE (20:00)
[2018-04-02] MEDS ORDERED: POTA99TA24 PO (20:04)
[2018-04-02 21:57] LABS: CULTURE INDICATED? NO; MICROSCOPIC NOT IND
[2018-04-02] MEDS ORDERED: SODIUM CHLORIDE FLUSH 10ML SYR IVF PRN (22:00)
[2018-04-02 23:00] VITALS: BP 130/56
[2018-04-02] MEDS ORDERED: HYDROcodone/APAP 5/325 TABLET PO PRN (23:00)
[2018-04-02] MEDS ORDERED: ONDANSETRON 2MG/ML, 2ML IVPush PRN (23:00)
[2018-04-02] MEDS ORDERED: LABETALOL 5MG/ML, 20ML IVPush PRN (23:00)
[2018-04-02] MEDS ORDERED: IBUPROFEN 600 MG TABLET PO PRN (23:00)
[2018-04-02] MEDS ORDERED: TRAZODONE 50MG TABLET PO PRN (23:00)
[2018-04-02] MEDS ORDERED: HYDROmorphone 2 MG/ML, 1ML IVPush PRN (23:00)
[2018-04-02] MEDS ORDERED: ENALAPRILAT 1.25 MG/ML, 2ML IVPush PRN (23:00)
[2018-04-02] MEDS ORDERED: BISACODYL 10 MG SUPP PR PRN (23:00)
[2018-04-02] MEDS ORDERED: ACETAMINOPHEN 325 MG TABLET PO PRN (23:00)
[2018-04-02 23:10] VITALS: BP 130/56
[2018-04-02] MEDS: SODIUM CHLORIDE 0.9% 1,000 ML IV SCH (23:28)
[2018-04-02] MEDS: HEPARIN 5,000 UNITS/ML, 1ML SQ SCH (23:30)
[2018-04-03 01:24] VITALS: BP 122/60
[2018-04-03 02:15] LABS: OCCULT BLOOD NEGATIVE (NEGATIVE)
[2018-04-03] MEDS: LEVOTHYROXINE 88 MCG TABLET PO SCH (05:30)
[2018-04-03 05:36] LABS: CLOSTRIDIUM DIFFICILE ANTIGEN NEGATIVE; CLOSTRIDIUM DIFFICILE TOXIN NEGATIVE (Negative)
[2018-04-03] MEDS: SODIUM CHLORIDE 0.9% 1,000 ML IV SCH ×3 (05:41→22:21)
[2018-04-03 06:11] LABS: CHLORIDE 112 mmol/L (98-107)
[2018-04-03 06:28] LABS: % IRON SATURATION 7 % (20-55); ALANINE AMINOTRANSFERASE 28 U/L (12-78); ALBUMIN 3.2 g/dL (3.4-5.0); ALKALINE PHOSPHATASE 160 U/L (45-117); ANION GAP 9 mmol/L (5-15); BILIRUBIN,TOTAL 0.5 mg/dL (0.2-1.0); CALCIUM 8.1 mg/dL (8.5-10.1); CREATININE 0.74 mg/dL (0.55-1.02); GAMMA GLUTAMYL TRANSPEPTIDASE 36 U/L (5-55); IRON LEVEL 29 mcg/dL (50-170); MEAN CORPUSCULAR HEMOGLOBIN 25.1 pg (27.0-34.8); MEAN CORPUSCULAR HGB CONC 31.8 g/dL (32.4-35.8); MEAN CORPUSCULAR VOLUME 78.9 fL (80-100); MEAN PLATELET VOLUME 9.4 fL (7.4-10.4); PLATELET COUNT 402 x10^3/uL (130-400); RED BLOOD COUNT 4.63 x10^6/uL (3.82-5.3); RED CELL DISTRIBUTION WIDTH 19.5 % (9.6-15.2); TOTAL IRON BINDING CAPACITY 437 mcg/dL (250-450); TOTAL PROTEIN 6.1 g/dL (6.4-8.2)
[2018-04-03 06:31] LABS: MD YES
[2018-04-03 06:32] LABS: BAND#(MANUAL) 0.23 x10^3/uL; BANDS%(MANUAL) 2 % (0-7); BASOS#(MANUAL) 0.12 x10^3/uL (0-0.1); BASOS% (MANUAL) 1 % (0-1); LYMPH#(MANUAL) 0.23 x10^3/uL (1-3.4); LYMPHS% (MANUAL) 2 % (22-44); MONOS#(MANUAL) 0.82 x10^3/uL (0.3-2.7); MONOS% (MANUAL) 7 % (2-9); SEGS% (MANUAL) 88 % (42-75)
[2018-04-03 06:33] LABS: ANISOCYTOSIS 1+
[2018-04-03 06:34] LABS: <PLATELET ESTIMATE> INCREASED; GIANT PLATELETS 1+; HYPOCHROMIA 1+; OVALOCYTES 1+
[2018-04-03 06:35] LABS: LARGE PLATELETS 2+
[2018-04-03 07:26] VITALS: BP 92/58
[2018-04-03] MEDS: ASPIRIN 81 MG TABLET CHEW PO SCH (08:01)
[2018-04-03] MEDS: CLOPIDOGREL 75 MG TABLET PO SCH (08:01)
[2018-04-03] MEDS: OMEPRAZOLE 20 MG CAPSULE.DR PO SCH (08:02)
[2018-04-03] MEDS: CITALOPRAM 10 MG TABLET PO SCH (08:02)
[2018-04-03] MEDS: HEPARIN 5,000 UNITS/ML, 1ML SQ SCH ×2 (08:02→21:10)
[2018-04-03] MEDS ORDERED: ALBUTEROL SULFATE 2.5 MG/3 ML ONE (08:48)
[2018-04-03] MEDS ORDERED: LEVOTHYROXINE 88 MCG TABLET PO SCH (09:00)
[2018-04-03] MEDS ORDERED: ALBUTEROL SULFATE 2.5 MG/3 ML NPPB PRN (09:00)
[2018-04-03] MEDS: POTASSIUM GLUCONATE 99 MG HOMEMEDPO SCH (09:09)
[2018-04-03 12:26] VITALS: BP 106/66
[2018-04-03] MEDS ORDERED: ATORVASTATIN 40 MG TABLET PO SCH (21:00)
[2018-04-03 21:22] VITALS: BP 113/64
[2018-04-04 00:17] VITALS: BP 98/61
[2018-04-04] MEDS: SODIUM CHLORIDE 0.9% 1,000 ML IV SCH (05:00)
[2018-04-04 05:41] LABS: BASOPHILS # (AUTO) 0.05 x10^3/uL (0-0.1); BASOPHILS % (AUTO) 1 % (0-1); EOSINOPHILS # (AUTO) 0.24 x10^3/uL (0-0.4); EOSINOPHILS % (AUTO) 3 % (1-7); LYMPHOCYTES # (AUTO) 2.14 x10^3/uL (1-3.4); LYMPHOCYTES % (AUTO) 29 % (22-44); MD NO; MEAN CORPUSCULAR HEMOGLOBIN 25.1 pg (27.0-34.8); MEAN CORPUSCULAR HGB CONC 32.1 g/dL (32.4-35.8); MEAN CORPUSCULAR VOLUME 78.2 fL (80-100); MEAN PLATELET VOLUME 9.3 fL (7.4-10.4); MONOCYTES # (AUTO) 0.94 x10^3/uL (0.2-0.8); MONOCYTES % (AUTO) 13 % (2-9); NEUTROPHILS # (AUTO) 3.94 x10^3/uL (1.8-6.8); NEUTROPHILS % (AUTO) 54 % (42-75); PLATELET COUNT 342 x10^3/uL (130-400); RED BLOOD COUNT 3.77 x10^6/uL (3.82-5.3)
[2018-04-04 05:47] LABS: ANION GAP 5 mmol/L (5-15); CALCIUM 7.4 mg/dL (8.5-10.1); CHLORIDE 114 mmol/L (98-107)
[2018-04-04 05:48] LABS: CREATININE 0.69 mg/dL (0.55-1.02)
[2018-04-04] MEDS: LEVOTHYROXINE 88 MCG TABLET PO SCH (06:02)
[2018-04-04] MEDS: HEPARIN 5,000 UNITS/ML, 1ML SQ SCH ×2 (06:03→14:32)
[2018-04-04 07:54] VITALS: BP 144/78
[2018-04-04] MEDS: POTASSIUM GLUCONATE 99 MG HOMEMEDPO SCH (09:00)
[2018-04-04] MEDS: OMEPRAZOLE 20 MG CAPSULE.DR PO SCH (10:52)
[2018-04-04] MEDS: CLOPIDOGREL 75 MG TABLET PO SCH (10:52)
[2018-04-04] MEDS: ASPIRIN 81 MG TABLET CHEW PO SCH (10:52)
[2018-04-04] MEDS: CITALOPRAM 10 MG TABLET PO SCH (10:52)
[2018-04-04 13:30] VITALS: BP 138/78
[2018-04-04] MEDS ORDERED: SODIUM CHLORIDE 0.9% 1,000 ML IV SCH (22:49)
== END 2018-04-04 18:26 | disposition home or self-care (01) | DRG 390 ==
LOC: ED 21:10 → EDIP 21:45 → 3NW 22:55
PROVIDERS: ADMIT Family Medicine; ATTEND Family Medicine
DX: K56.600 Partial intestinal obstruction, unspecified as to cause (principal); D12.6 Benign neoplasm of colon, unspecified; D50.9 Iron deficiency anemia, unspecified; D64.89 Other specified anemias; E03.9 Hypothyroidism, unspecified; E78.00 Pure hypercholesterolemia, unspecified; F32.9 Major depressive disorder, single episode, unspecified; F41.1 Generalized anxiety disorder; I25.10 Atherosclerotic heart disease of native coronary artery without angina pectoris; Z82.49 Family history of ischemic heart disease and other diseases of the circulatory system; Z81.1 Family history of alcohol abuse and dependence; Z83.79 Family history of other diseases of the digestive system; I25.2 Old myocardial infarction; K21.9 Gastro-esophageal reflux disease without esophagitis; N20.0 Calculus of kidney; R09.02 Hypoxemia; Z85.42 Personal history of malignant neoplasm of other parts of uterus; Z85.43 Personal history of malignant neoplasm of ovary; Z85.71 Personal history of Hodgkin lymphoma; Z85.72 Personal history of non-Hodgkin lymphomas; Z86.73 Personal history of transient ischemic attack (TIA), and cerebral infarction without residual deficits; Z87.442 Personal history of urinary calculi; Z87.891 Personal history of nicotine dependence; Z90.710 Acquired absence of both cervix and uterus; Z90.81 Acquired absence of spleen; Z79.899 Other long term (current) drug therapy; Z88.5 Allergy status to narcotic agent; Z88.0 Allergy status to penicillin
CPT/HCPCS: 36415; 71045; 74177; 74181; 76705; 80048; 80053; 81003; 82272; 82728; 82977; 83540; 83550; 83605; 83690; 84443; 85025; 87040; 87324; 93005; 94640; 96361; 96374; G0378; J1170; J1644; J2405; J7613; Q9967; J7030

== ENCOUNTER 2018-12-06 00:10 | Inpatient (IN) | payer OTHER ==
[~2018-12-06] VITALS: Ht 167.6 cm; Wt 95.0 kg
[~2018-12-06 00:10] MED LIST changes: +POTA99TA24 PO
[2018-12-06] MEDS ORDERED: HYDROmorphone 2 MG/ML, 1ML IVPush PRN ×2 (01:00→05:30)
[2018-12-06] MEDS ORDERED: ONDANSETRON 2MG/ML, 2ML IVPush ONE (01:00)
[2018-12-06] MEDS ORDERED: SODIUM CHLORIDE FLUSH 10ML SYR IVF ONE (01:00)
[2018-12-06] MEDS ORDERED: ONDANSETRON 2MG/ML, 2ML ONE (01:01)
[2018-12-06] MEDS ORDERED: HYDROmorphone 2 MG/ML, 1ML ONE ×2 (01:02→04:00)
--- NOTE | 2018-12-06 01:19 | NUR ---
IV STARTED AND BLOOD TO LAB. PT MEDICATED ORDERED AND REPORTS IMPTOVED PAIN.
[2018-12-06 01:33] LABS: BASOPHILS # (AUTO) 0.04 x10^3/uL (0-0.1); BASOPHILS % (AUTO) 1 % (0-1); EOSINOPHILS # (AUTO) 0.27 x10^3/uL (0-0.4); EOSINOPHILS % (AUTO) 4 % (1-7); LYMPHOCYTES # (AUTO) 2.53 x10^3/uL (1-3.4); LYMPHOCYTES % (AUTO) 33 % (22-44); MD NO; MEAN CORPUSCULAR HEMOGLOBIN 30.2 pg (27.0-34.8); MEAN CORPUSCULAR HGB CONC 32.4 g/dL (32.4-35.8); MEAN CORPUSCULAR VOLUME 93.3 fL (80-100); MEAN PLATELET VOLUME 9.6 fL (7.4-10.4); MONOCYTES # (AUTO) 0.87 x10^3/uL (0.2-0.8); MONOCYTES % (AUTO) 11 % (2-9); NEUTROPHILS # (AUTO) 4.06 x10^3/uL (1.8-6.8); NEUTROPHILS % (AUTO) 52 % (42-75); PLATELET COUNT 372 x10^3/uL (130-400); RED BLOOD COUNT 4.44 x10^6/uL (3.82-5.3); RED CELL DISTRIBUTION WIDTH 16.2 % (9.6-15.2)
[2018-12-06 01:38] LABS: ALANINE AMINOTRANSFERASE 13 U/L (12-78); ALBUMIN 3.1 g/dL (3.4-5.0); ANION GAP 5 mmol/L (5-15); CALCIUM 8.6 mg/dL (8.5-10.1); CHLORIDE 110 mmol/L (98-107); CREATININE 0.92 mg/dL (0.55-1.02)
[2018-12-06 01:42] LABS: ALKALINE PHOSPHATASE 121 U/L (45-117); BILIRUBIN,TOTAL 0.3 mg/dL (0.2-1.0); TOTAL PROTEIN 6.1 g/dL (6.4-8.2); TROPONIN I < 0.015 ng/mL (0.000-0.045)
--- NOTE | 2018-12-06 01:50 | NUR ---
PT REPORTS PAIN RESOLVED AND IS CURRENTLY RESTING IN NO DISTRESS.
--- NOTE | 2018-12-06 03:58 | NUR ---
PT MEDICTED ORDERED AND AWAITING ERP RECHECK.
[2018-12-06] MEDS ORDERED: OMNIPAQUE 350 MG/ML, 100ML BOTTLE ONE (04:19)
--- NOTE | 2018-12-06 04:34 | NUR ---
PT TO BE ADMIT TO HOSPITAL AND IS AWAITING ADMIT MD. PT ASLEEP AFTER SECOND DOSE OF PAIN MED AND PLACED ON O2 DUE TO DROPPING O2 SATS.
--- NOTE | 2018-12-06 04:54 | NUR ---
report called to floor pt ready to go to room.
[2018-12-06 05:04] VITALS: BP 121/65
[2018-12-06] MEDS ORDERED: LABETALOL 5MG/ML, 20ML IVPush PRN (05:30)
[2018-12-06] MEDS ORDERED: ONDANSETRON 2MG/ML, 2ML IVPush PRN (05:30)
[2018-12-06] MEDS ORDERED: ENALAPRILAT 1.25 MG/ML, 2ML IVPush PRN (05:30)
[2018-12-06 06:13] LABS: INTERNATIONAL NORMALIZED RATIO 3.12 (0.93-1.1); PROTHROMBIN TIME 31.4 Seconds (9.6-11.5)
[2018-12-06] MEDS: SODIUM CHLORIDE 0.9% 1,000 ML IV SCH ×3 (06:20→19:55)
[2018-12-06 07:58] VITALS: BP 92/47
[2018-12-06] MEDS: ENOXAPARIN 100 MG/ML SQ SCH ×2 (08:41→21:00)
[2018-12-06] MEDS: FAMOTIDINE 20 MG/2 ML IVPush SCH ×2 (08:42→21:00)
[2018-12-06 09:54] LABS: MICROSCOPIC NOT IND
[2018-12-06 10:00] LABS: CULTURE INDICATED? NO
[2018-12-06] MEDS ORDERED: ALBUTEROL SULFATE 2.5 MG/3 ML NPPB PRN (12:00)
[2018-12-06 12:42] VITALS: BP 109/40
[2018-12-06] MEDS: KETOROLAC 30 MG/1 ML IV PRN (19:30)
[2018-12-06 21:30] VITALS: BP 96/50
[2018-12-07] MEDS: KETOROLAC 30 MG/1 ML IV PRN ×3 (01:37→19:35)
[2018-12-07 01:41] VITALS: BP 104/48
[2018-12-07] MEDS: SODIUM CHLORIDE 0.9% 1,000 ML IV SCH ×3 (02:59→23:32)
[2018-12-07 04:45] LABS: BASOPHILS # (AUTO) 0.06 x10^3/uL (0-0.1); BASOPHILS % (AUTO) 1 % (0-1); EOSINOPHILS # (AUTO) 0.37 x10^3/uL (0-0.4); EOSINOPHILS % (AUTO) 5 % (1-7); LYMPHOCYTES % (AUTO) 32 % (22-44); MD NO; MEAN CORPUSCULAR HEMOGLOBIN 30.6 pg (27.0-34.8); MEAN CORPUSCULAR HGB CONC 32.6 g/dL (32.4-35.8); MEAN CORPUSCULAR VOLUME 93.8 fL (80-100); MEAN PLATELET VOLUME 9.7 fL (7.4-10.4); MONOCYTES # (AUTO) 0.67 x10^3/uL (0.2-0.8); MONOCYTES % (AUTO) 10 % (2-9); NEUTROPHILS # (AUTO) 3.63 x10^3/uL (1.8-6.8); NEUTROPHILS % (AUTO) 52 % (42-75); PLATELET COUNT 314 x10^3/uL (130-400); RED BLOOD COUNT 3.88 x10^6/uL (3.82-5.3); RED CELL DISTRIBUTION WIDTH 16.3 % (9.6-15.2)
[2018-12-07 05:01] LABS: ANION GAP 5 mmol/L (5-15); CALCIUM 7.9 mg/dL (8.5-10.1); CHLORIDE 113 mmol/L (98-107)
[2018-12-07 05:02] LABS: CREATININE 0.75 mg/dL (0.55-1.02)
[2018-12-07 07:45] VITALS: BP 96/41
[2018-12-07] MEDS: LEVOTHYROXINE 88 MCG TABLET PO SCH (10:09)
[2018-12-07] MEDS: ASPIRIN 81 MG TABLET EC PO SCH (10:09)
[2018-12-07] MEDS: CITALOPRAM 20 MG TABLET PO SCH (10:09)
[2018-12-07] MEDS: OMEPRAZOLE 20 MG CAPSULE.DR PO SCH (10:09)
[2018-12-07] MEDS: CLOPIDOGREL 75 MG TABLET PO SCH (10:09)
[2018-12-07] MEDS: ENOXAPARIN 100 MG/ML SQ SCH ×2 (10:10→19:35)
[2018-12-07 13:25] VITALS: BP 110/66
[2018-12-07 18:45] VITALS: BP 111/66
[2018-12-07] MEDS ORDERED: ATORVASTATIN 40 MG TABLET PO SCH (21:00)
[2018-12-08 01:57] VITALS: BP 116/70
[2018-12-08 05:16] LABS: BASOPHILS # (AUTO) 0.05 x10^3/uL (0-0.1); BASOPHILS % (AUTO) 1 % (0-1); EOSINOPHILS % (AUTO) 4 % (1-7); LYMPHOCYTES # (AUTO) 1.91 x10^3/uL (1-3.4); LYMPHOCYTES % (AUTO) 26 % (22-44); MD NO; MEAN CORPUSCULAR HEMOGLOBIN 29.7 pg (27.0-34.8); MEAN CORPUSCULAR HGB CONC 32.1 g/dL (32.4-35.8); MEAN CORPUSCULAR VOLUME 92.8 fL (80-100); MEAN PLATELET VOLUME 9.2 fL (7.4-10.4); MONOCYTES # (AUTO) 0.63 x10^3/uL (0.2-0.8); MONOCYTES % (AUTO) 9 % (2-9); NEUTROPHILS # (AUTO) 4.44 x10^3/uL (1.8-6.8); NEUTROPHILS % (AUTO) 61 % (42-75); PLATELET COUNT 297 x10^3/uL (130-400); RED BLOOD COUNT 3.75 x10^6/uL (3.82-5.3); RED CELL DISTRIBUTION WIDTH 16.2 % (9.6-15.2)
[2018-12-08 05:30] LABS: ALBUMIN 2.6 g/dL (3.4-5.0); ANION GAP 5 mmol/L (5-15); CALCIUM 7.7 mg/dL (8.5-10.1); CHLORIDE 113 mmol/L (98-107)
[2018-12-08 05:34] LABS: ALANINE AMINOTRANSFERASE 12 U/L (12-78); ALKALINE PHOSPHATASE 97 U/L (45-117); BILIRUBIN,TOTAL 0.7 mg/dL (0.2-1.0); CREATININE 0.65 mg/dL (0.55-1.02); TOTAL PROTEIN 5.1 g/dL (6.4-8.2)
[2018-12-08 07:16] VITALS: BP 99/51
[2018-12-08] MEDS: ENOXAPARIN 100 MG/ML SQ SCH (07:26)
[2018-12-08] MEDS: LEVOTHYROXINE 88 MCG TABLET PO SCH (08:13)
[2018-12-08] MEDS: ASPIRIN 81 MG TABLET EC PO SCH (09:21)
[2018-12-08] MEDS: CLOPIDOGREL 75 MG TABLET PO SCH (09:22)
[2018-12-08] MEDS: OMEPRAZOLE 20 MG CAPSULE.DR PO SCH (09:22)
[2018-12-08] MEDS: CITALOPRAM 20 MG TABLET PO SCH (09:22)
[2018-12-08] MEDS: SODIUM CHLORIDE 0.9% 1,000 ML IV SCH (10:50)
[2018-12-08 11:38] LABS: INTERNATIONAL NORMALIZED RATIO 2.47 (0.93-1.1)
[2018-12-08 12:59] VITALS: BP 102/62
[2018-12-08 14:31] VITALS: BP_SYST 102; BP_SYST 123; BP_DIAS 59; BP_DIAS 62
[2018-12-08] MEDS ORDERED: WARF7.5T46 PO (15:35)
== END 2018-12-08 15:50 | disposition home or self-care (01) | DRG 389 ==
LOC: ED 01:11 → 4NOR 04:58 → ED 05:58 → 4NOR 05:59 → DCLOUNGE 12-08 15:30
PROVIDERS: ADMIT Family Medicine; ATTEND Family Medicine
DX: K56.51 Intestinal adhesions [bands], with partial obstruction (principal); E44.0 Moderate protein-calorie malnutrition; E03.9 Hypothyroidism, unspecified; E78.00 Pure hypercholesterolemia, unspecified; E78.5 Hyperlipidemia, unspecified; F32.9 Major depressive disorder, single episode, unspecified; F41.1 Generalized anxiety disorder; I25.10 Atherosclerotic heart disease of native coronary artery without angina pectoris; I25.2 Old myocardial infarction; I10 Essential (primary) hypertension; K21.9 Gastro-esophageal reflux disease without esophagitis; Z79.01 Long term (current) use of anticoagulants; Z88.0 Allergy status to penicillin; Z88.6 Allergy status to analgesic agent; Z66 Do not resuscitate; Z79.02 Long term (current) use of antithrombotics/antiplatelets; Z79.4 Long term (current) use of insulin; Z85.42 Personal history of malignant neoplasm of other parts of uterus; Z85.71 Personal history of Hodgkin lymphoma; Z85.72 Personal history of non-Hodgkin lymphomas; Z86.711 Personal history of pulmonary embolism; Z86.718 Personal history of other venous thrombosis and embolism; Z86.73 Personal history of transient ischemic attack (TIA), and cerebral infarction without residual deficits; Z87.442 Personal history of urinary calculi; Z87.891 Personal history of nicotine dependence; Z90.710 Acquired absence of both cervix and uterus; Z90.81 Acquired absence of spleen; Z95.5 Presence of coronary angioplasty implant and graft; Z83.3 Family history of diabetes mellitus; Z82.49 Family history of ischemic heart disease and other diseases of the circulatory system; M79.81 Nontraumatic hematoma of soft tissue
CPT/HCPCS: 36415; 71045; 74177; 80048; 80053; 81003; 83690; 84484; 85025; 85610; 93005; G0378; J1170; J1650; J1885; J2405; Q9967; J3490; J7030

== ENCOUNTER 2019-01-11 02:40 | Inpatient (IN) | payer OTHER ==
[~2019-01-11] VITALS: Ht 167.6 cm; Wt 103.1 kg
[2019-01-12 16:38] VITALS: BP 97/53
== END 2019-01-12 19:14 | disposition home or self-care (01) | DRG 392 ==
LOC: ED 03:24 → EDIP 03:45 → 5SO 06:30
PROVIDERS: ADMIT Family Medicine; ATTEND Family Medicine
DX: K21.9 Gastro-esophageal reflux disease without esophagitis (principal); F19.20 Other psychoactive substance dependence, uncomplicated; E78.00 Pure hypercholesterolemia, unspecified; I11.0 Hypertensive heart disease with heart failure; Z66 Do not resuscitate; I25.10 Atherosclerotic heart disease of native coronary artery without angina pectoris; I44.7 Left bundle-branch block, unspecified; F41.1 Generalized anxiety disorder; E78.5 Hyperlipidemia, unspecified; E03.9 Hypothyroidism, unspecified; F32.9 Major depressive disorder, single episode, unspecified; I45.81 Long QT syndrome; F10.10 Alcohol abuse, uncomplicated; J45.909 Unspecified asthma, uncomplicated; Z90.710 Acquired absence of both cervix and uterus; Z86.73 Personal history of transient ischemic attack (TIA), and cerebral infarction without residual deficits; Z95.5 Presence of coronary angioplasty implant and graft; Z87.891 Personal history of nicotine dependence; Z79.01 Long term (current) use of anticoagulants; Z90.81 Acquired absence of spleen; Z86.718 Personal history of other venous thrombosis and embolism; Z85.71 Personal history of Hodgkin lymphoma; Z85.42 Personal history of malignant neoplasm of other parts of uterus; Z79.4 Long term (current) use of insulin; I25.2 Old myocardial infarction
CPT/HCPCS: 36415; 71045; 78452; 80053; 84484; 85025; 85610; 93005; 93017; 99285; G0378; J2785; A9502; C9898

== ENCOUNTER 2019-05-04 21:41 | Emergency (ER) | payer OTHER ==
[~2019-05-04] VITALS: Ht 167.6 cm; Wt 100.0 kg
[~2019-05-04 21:41] MED LIST changes: +FERR-51 PO; +ISOS30TA8 PO; +WARF7.5T46 PO
--- NOTE | 2019-05-04 21:55 | NUR ---
LATE NOTE. PT BIB EMS WITH C/O L KNEE PAIN. PT REPORTS KNEE BECAME SWOLLEN EARLIER TODAY WITH PAIN WITH MOVEMENT 01/27. PT REPORTS HISTORY OF SAME APPX X1 MONTH AGO, RESOLVED ON ITS OWN. PT REPORTS SWELLING IS WORSE THIS TIME. PT REPORTS HX OF DVT AND ARTHRITIS. PT REPORTS IMAGING ON KNEE DURING PREVIOUS EVENT WITH NO SIGNS OF DVT OR ARTHRITIC FLARE UP. PT CONNECTED TO MONITORING, ALL SAFETY MEASURES IN PLACE, CALL LIGHT WITHIN REACH.
--- NOTE | 2019-05-04 22:13 | NUR ---
PT TO IMAGING AT THIS TIME.
[2019-05-04] MEDS ORDERED: HYDROcodone/APAP 5/325 TABLET ONE (22:41)
[2019-05-04] MEDS ORDERED: HYDROcodone/APAP 5/325 TABLET PO ONE (23:00)
--- NOTE | 2019-05-04 23:00 | NUR ---
PT PROVIDED WATER AND MEDICATED PER AUG. PT FAMILY AT FOR SUPPORT. PT CONNECTED TO MONITORING, ALL SAFETY MEASURES IN PLACE, CALL LIGHT WITHIN REACH.
--- NOTE | 2019-05-04 23:33 | NUR ---
TAYA BANDAGE APPLIED TO PTS KNEE BY THIS RN. PT REPORTS NO DISCOMFORT WITH TAYA WRAP IN PLACE.
[2019-05-04 23:35] VITALS: BP 128/82
== END 2019-05-04 23:39 | disposition home or self-care (01) ==
LOC: ED 22:00
DX: M17.12 Unilateral primary osteoarthritis, left knee (principal); M25.462 Effusion, left knee; M79.662 Pain in left lower leg; I10 Essential (primary) hypertension; I25.10 Atherosclerotic heart disease of native coronary artery without angina pectoris; J45.909 Unspecified asthma, uncomplicated; G89.29 Other chronic pain; I25.2 Old myocardial infarction; E78.5 Hyperlipidemia, unspecified; Z87.891 Personal history of nicotine dependence
CPT/HCPCS: 99284

== ENCOUNTER 2019-07-27 14:51 | Emergency (ER) | payer OTHER ==
[~2019-07-27] VITALS: Ht 165.1 cm; Wt 100.0 kg
[2019-07-27] MEDS ORDERED: ACETAMINOPHEN 325 MG TABLET PO ONE (15:30)
[2019-07-27] MEDS ORDERED: PLEASE ENTER HEIGHT AND WEIGHT MC SCH (15:30)
[2019-07-27] MEDS ORDERED: ACETAMINOPHEN 325 MG TABLET ONE (15:56)
--- NOTE | 2019-07-27 16:00 | NUR ---
Medicated as per emar for neck pain 12/27
[2019-07-27] MEDS ORDERED: NEOSPORIN OINT. PKT 1 PACKET ONE (16:06)
--- NOTE | 2019-07-27 16:31 | NUR ---
abrasion to chin cleaned & dressed w/ bacitracin.
--- NOTE | 2019-07-27 17:00 | NUR ---
Waiting on x-ray reads. @
[2019-07-27 17:16] VITALS: BP 131/59
== END 2019-07-27 17:18 | disposition home or self-care (01) ==
LOC: ED 17:00
DX: S16.1XXA Strain of muscle, fascia and tendon at neck level, initial encounter (principal); S00.81XA Abrasion of other part of head, initial encounter; S20.319A Abrasion of unspecified front wall of thorax, initial encounter; R07.89 Other chest pain; E78.00 Pure hypercholesterolemia, unspecified; I25.2 Old myocardial infarction; J45.909 Unspecified asthma, uncomplicated; I25.10 Atherosclerotic heart disease of native coronary artery without angina pectoris; E03.9 Hypothyroidism, unspecified; V49.19XA Passenger injured in collision with other motor vehicles in nontraffic accident, initial encounter; Y93.89 Activity, other specified; Y92.89 Other specified places as the place of occurrence of the external cause; Y99.8 Other external cause status
CPT/HCPCS: 70360; 71045; 72125; 99284

== ENCOUNTER 2019-08-04 | Emergency (ER) | payer OTHER ==
[~2019-08-04] VITALS: Ht 165.1 cm; Wt 101.3 kg
--- NOTE | 2019-08-04 00:27 | NUR ---
provider @ bedside for assessment, placed on tele and monitor, placed on 2l O2 per home oxygen settings, skin intact pwd
[2019-08-04] MEDS ORDERED: SODIUM CHLORIDE 0.9% 1,000ML IVBOLUS ONE (00:30)
[2019-08-04] MEDS ORDERED: SODIUM CHLORIDE FLUSH 10ML SYR IVF ONE (00:30)
[2019-08-04 01:01] LABS: BASOPHILS # (AUTO) 0.04 x10^3/uL (0-0.1); BASOPHILS % (AUTO) 1 % (0-1); EOSINOPHILS # (AUTO) 0.27 x10^3/uL (0-0.4); EOSINOPHILS % (AUTO) 3 % (1-7); LYMPHOCYTES # (AUTO) 2.75 x10^3/uL (1-3.4); LYMPHOCYTES % (AUTO) 28 % (22-44); MD NO; MEAN CORPUSCULAR HEMOGLOBIN 30.1 pg (27.0-34.8); MEAN CORPUSCULAR HGB CONC 32.8 g/dL (32.4-35.8); MEAN CORPUSCULAR VOLUME 91.7 fL (80-100); MEAN PLATELET VOLUME 9.6 fL (7.4-10.4); MONOCYTES # (AUTO) 1.09 x10^3/uL (0.2-0.8); MONOCYTES % (AUTO) 11 % (2-9); NEUTROPHILS # (AUTO) 5.66 x10^3/uL (1.8-6.8); NEUTROPHILS % (AUTO) 58 % (42-75); PLATELET COUNT 358 x10^3/uL (130-400); RED BLOOD COUNT 4.25 x10^6/uL (3.82-5.3); RED CELL DISTRIBUTION WIDTH 15.7 % (9.6-15.2)
[2019-08-04 01:14] LABS: ALANINE AMINOTRANSFERASE 16 U/L (12-78); ALBUMIN 2.9 g/dL (3.4-5.0); ANION GAP 8 mmol/L (5-15); CALCIUM 8.3 mg/dL (8.5-10.1); CHLORIDE 111 mmol/L (98-107); CREATININE 1.14 mg/dL (0.55-1.02); INTERNATIONAL NORMALIZED RATIO 2.5 (0.93-1.1); PROTHROMBIN TIME 26.7 Seconds (9.6-11.5)
[2019-08-04 01:16] LABS: ALKALINE PHOSPHATASE 145 U/L (45-117); BILIRUBIN,TOTAL 0.3 mg/dL (0.2-1.0)
--- NOTE | 2019-08-04 01:46 | NUR ---
Report given to Simran PATEL
--- NOTE | 2019-08-04 01:46 | NUR ---
returned to room from CT
--- NOTE | 2019-08-04 02:39 | NUR ---
CT CALLED TO FOLLOW UP ON RESULTS AT THIS TIME.
--- NOTE | 2019-08-04 02:47 | NUR ---
CT CALLED TO FOLLOW UP ON CT RESULTS TAKING AN EXCESSIVE AMOUNT OF TIME. RADIOLOGY AGREES TO CALL IN BRICK KILN WORKER RADIOLOGIST. SLADE SOFIA UPDATED.
--- NOTE | 2019-08-04 03:23 | NUR ---
PA AT BEDSIDE TO DISCUSS POC
[2019-08-04] MEDS ORDERED: OMNIPAQUE 350 MG/ML, 100ML BOTTLE ONE (03:26)
--- NOTE | 2019-08-04 03:27 | NUR ---
PT RESTING ON GURNEY WITH AT BEDSIDE, RESP EVEN AND UNLABORED, CALL LIGHT IN REACH.
[2019-08-04 04:55] VITALS: BP 133/63
--- NOTE | 2019-08-04 05:33 | NUR ---
Patient/Caregiver given discharge instructions and they have confirmed that they understand the instructions. Patient ambulatory with steady gait. piv dc prior to pt leaving facility
== END 2019-08-04 05:57 | disposition home or self-care (01) ==
LOC: ED 05:42
DX: G89.11 Acute pain due to trauma (principal); M54.2 Cervicalgia; R51 Headache; E78.00 Pure hypercholesterolemia, unspecified; I25.2 Old myocardial infarction; J45.909 Unspecified asthma, uncomplicated; I25.10 Atherosclerotic heart disease of native coronary artery without angina pectoris; E03.9 Hypothyroidism, unspecified; Z86.73 Personal history of transient ischemic attack (TIA), and cerebral infarction without residual deficits; Z90.49 Acquired absence of other specified parts of digestive tract; Z90.710 Acquired absence of both cervix and uterus; V89.2XXD Person injured in unspecified motor-vehicle accident, traffic, subsequent encounter
CPT/HCPCS: 36415; 70450; 70498; 80053; 85025; 85610; 85730; 99284; J7030; Q9967; 99285

== ENCOUNTER 2019-08-26 00:35 | Inpatient (IN) | payer OTHER ==
[~2019-08-26] VITALS: Ht 165.1 cm; Wt 102.0 kg
--- NOTE | 2019-08-26 01:03 | NUR ---
pt resting on gurney, monitors in place, siderails up x2, call light within reach. pa at bedside for eval
[2019-08-26] MEDS ORDERED: ONDANSETRON 2MG/ML, 2ML ONE (01:11)
[2019-08-26] MEDS ORDERED: HYDROmorphone 1 MG/ML, 1ML INJ ONE ×3 (01:11→05:53)
--- NOTE | 2019-08-26 01:24 | NUR ---
pt medicated per mar
[2019-08-26 01:28] LABS: MEAN CORPUSCULAR HEMOGLOBIN 29.4 pg (27.0-34.8); MEAN CORPUSCULAR HGB CONC 32.3 g/dL (32.4-35.8); MEAN CORPUSCULAR VOLUME 90.9 fL (80-100); MEAN PLATELET VOLUME 8.4 fL (7.4-10.4); PLATELET COUNT 515 x10^3/uL (130-400); RED BLOOD COUNT 4.69 x10^6/uL (3.82-5.3); RED CELL DISTRIBUTION WIDTH 15.4 % (9.6-15.2)
[2019-08-26] MEDS ORDERED: HYDROmorphone 2 MG/ML, 1ML IVPush ONE (01:30)
[2019-08-26] MEDS ORDERED: ONDANSETRON 2MG/ML, 2ML IVPush ONE (01:30)
[2019-08-26 01:40] LABS: ALANINE AMINOTRANSFERASE 18 U/L (12-78); ALBUMIN 3.1 g/dL (3.4-5.0); ANION GAP 8 mmol/L (5-15); CALCIUM 8.6 mg/dL (8.5-10.1); CHLORIDE 108 mmol/L (98-107); CREATININE 0.86 mg/dL (0.55-1.02)
[2019-08-26 01:43] LABS: ALKALINE PHOSPHATASE 142 U/L (45-117); BILIRUBIN,TOTAL 0.6 mg/dL (0.2-1.0); TOTAL PROTEIN 6.7 g/dL (6.4-8.2)
[2019-08-26 01:48] LABS: BASOPHILS # (AUTO) 0.03 x10^3/uL (0-0.1); BASOPHILS % (AUTO) 0 % (0-1); EOSINOPHILS # (AUTO) 0.18 x10^3/uL (0-0.4); EOSINOPHILS % (AUTO) 1 % (1-7); LYMPHOCYTES # (AUTO) 1.94 x10^3/uL (1-3.4); LYMPHOCYTES % (AUTO) 11 % (22-44); MD SCAN; MONOCYTES # (AUTO) 1.06 x10^3/uL (0.2-0.8); MONOCYTES % (AUTO) 6 % (2-9); NEUTROPHILS # (AUTO) 13.96 x10^3/uL (1.8-6.8); NEUTROPHILS % (AUTO) 81 % (42-75)
--- NOTE | 2019-08-26 01:51 | NUR ---
break rn note: given asa easley discussed poc pt is in ct now vss stable
--- NOTE | 2019-08-26 03:28 | NUR ---
PT RESTING WITH EYES CLOSED, NADN, RESPIRATIONS EVEN AND UNLABORED, CALL LIGHT WITHIN REACH. AWAITING CT RESULT
--- NOTE | 2019-08-26 03:44 | NUR ---
erp updated pt stated "my pain has come back", order received for pain medication. pt medicated pe rmar.
[2019-08-26] MEDS ORDERED: HYDROmorphone 1 MG/ML, 1ML INJ IV ONE (04:00)
--- NOTE | 2019-08-26 04:12 | NUR ---
pt up to rr with standby assist
[2019-08-26] MEDS ORDERED: CIPROFLOXACIN/PMX 400MG/200ML 200 ML ONE (04:14)
[2019-08-26] MEDS ORDERED: METRONIDAZOLE PMX 500MG/100ML 100 ML ONE (04:15)
[2019-08-26] MEDS ORDERED: CIPROFLOXACIN/PMX 400MG/200ML 200 ML IV ONE (04:30)
[2019-08-26] MEDS ORDERED: HYDROmorphone 1 MG/ML, 1ML INJ IVPush PRN (04:30)
[2019-08-26] MEDS ORDERED: METRONIDAZOLE PMX 500MG/100ML 100 ML IV ONE (04:30)
[2019-08-26] MEDS ORDERED: ONDANSETRON 2MG/ML, 2ML IVPush PRN (05:00)
[2019-08-26] MEDS ORDERED: DOCUSATE 100 MG CAPSULE PO PRN (05:00)
[2019-08-26] MEDS ORDERED: ENOXAPARIN 40 MG/0.4 ML SQ SCH (05:00)
[2019-08-26] MEDS ORDERED: Enoxaparin 1 mg/kg protocol SQ SCH (05:30)
[2019-08-26] MEDS ORDERED: OMNIPAQUE 350 MG/ML, 100ML BOTTLE ONE (05:50)
[2019-08-26] MEDS: METRONIDAZOLE PMX 500MG/100ML 100 ML IV SCH ×3 (05:51→22:19)
[2019-08-26] MEDS ORDERED: CEFTRIAXONE PMX 2GM/50ML 50 ML ONE (05:53)
--- NOTE | 2019-08-26 06:00 | NUR ---
Tavo hook in ED - 08/26/19 at 0602 by VERITO pt requesting more pain medication for abdominal pain. pt medicated per mar
[2019-08-26 06:01] LABS: HCT (SEDRATE) 41.4 % (34.6-47.8)
[2019-08-26 06:03] LABS: MEAN CORPUSCULAR HEMOGLOBIN 29.4 pg (27.0-34.8); MEAN CORPUSCULAR HGB CONC 32.6 g/dL (32.4-35.8); MEAN CORPUSCULAR VOLUME 90.4 fL (80-100); MEAN PLATELET VOLUME 8.6 fL (7.4-10.4); PLATELET COUNT 496 x10^3/uL (130-400); RED BLOOD COUNT 4.52 x10^6/uL (3.82-5.3); RED CELL DISTRIBUTION WIDTH 15.6 % (9.6-15.2)
[2019-08-26 06:15] LABS: GAMMA GLUTAMYL TRANSPEPTIDASE 18 U/L (5-55)
[2019-08-26 06:19] LABS: TROPONIN I < 0.015 ng/mL (0.000-0.045)
[2019-08-26 06:27] LABS: MD YES
[2019-08-26 06:28] LABS: LYMPHS% (MANUAL) 5 % (22-44); MONOS#(MANUAL) 0.54 x10^3/uL (0.3-2.7); MONOS% (MANUAL) 3 % (2-9); SEG#(MANUAL) 16.47 x10^3/uL (1.8-6.8); SEGS% (MANUAL) 92 % (42-75)
[2019-08-26 06:29] LABS: <PLATELET ESTIMATE> INCREASED; <PLT MORPHOLOGY> NORMAL PLT MORPH; <RBC MORPHOLOGY> NORMAL
[2019-08-26] MEDS ORDERED: ALBUTEROL/IPRATROPIUM 2.5MG/0.5MG, 3 ML IPPB PRN (07:00)
[2019-08-26] MEDS: PANTOPROZOLE 40MG TABLET PO SCH (07:30)
[2019-08-26] MEDS: HYDROmorphone 2 MG/ML, 1ML IVPush PRN ×4 (08:30→22:59)
[2019-08-26] MEDS: LEVOTHYROXINE 88 MCG TABLET PO SCH (08:31)
[2019-08-26] MEDS: POTASSIUM CHLORIDE 20 MEQ in LACTATED RINGERS 1,000 ML IV SCH ×2 (08:32→16:00)
[2019-08-26] MEDS: CEFTRIAXONE PMX 2GM/50ML 50 ML IV SCH (08:32)
[2019-08-26 12:07] VITALS: BP 111/57
[2019-08-26] MEDS: FONDAPARINUX 7.5 MG/0.6 ML SQ SCH (12:56)
[2019-08-26] MEDS ORDERED: MAALOX/HYOSCYAMINE/LIDOCAINE 45 ML BTL PO ONE (13:30)
[2019-08-26 20:03] VITALS: BP 120/62
[2019-08-26] MEDS ORDERED: ATORVASTATIN 40 MG TABLET PO SCH (21:00)
[2019-08-26 21:06] LABS: OCCULT BLOOD NEGATIVE (NEGATIVE)
[2019-08-26 23:23] LABS: MICROSCOPIC AUTO
[2019-08-26 23:26] LABS: CULTURE INDICATED? YES
[2019-08-27 01:00] VITALS: BP 121/73
[2019-08-27] MEDS: POTASSIUM CHLORIDE 20 MEQ in LACTATED RINGERS 1,000 ML IV SCH (04:12)
[2019-08-27 05:04] LABS: BASOPHILS # (AUTO) 0.04 x10^3/uL (0-0.1); BASOPHILS % (AUTO) 0 % (0-1); EOSINOPHILS # (AUTO) 0.18 x10^3/uL (0-0.4); EOSINOPHILS % (AUTO) 1 % (1-7); LYMPHOCYTES # (AUTO) 0.97 x10^3/uL (1-3.4); LYMPHOCYTES % (AUTO) 6 % (22-44); MD NO; MEAN CORPUSCULAR HEMOGLOBIN 29.4 pg (27.0-34.8); MEAN CORPUSCULAR HGB CONC 32.2 g/dL (32.4-35.8); MEAN CORPUSCULAR VOLUME 91.2 fL (80-100); MONOCYTES # (AUTO) 1.21 x10^3/uL (0.2-0.8); MONOCYTES % (AUTO) 8 % (2-9); NEUTROPHILS # (AUTO) 13.55 x10^3/uL (1.8-6.8); NEUTROPHILS % (AUTO) 85 % (42-75); PLATELET COUNT 432 x10^3/uL (130-400); RED BLOOD COUNT 4.09 x10^6/uL (3.82-5.3); RED CELL DISTRIBUTION WIDTH 15.5 % (9.6-15.2)
[2019-08-27 05:20] LABS: ALBUMIN 2.7 g/dL (3.4-5.0); ANION GAP 6 mmol/L (5-15); CALCIUM 7.9 mg/dL (8.5-10.1); CHLORIDE 111 mmol/L (98-107)
[2019-08-27 05:24] LABS: ALANINE AMINOTRANSFERASE 30 U/L (12-78); ALKALINE PHOSPHATASE 130 U/L (45-117); BILIRUBIN,TOTAL 0.6 mg/dL (0.2-1.0); CREATININE 1.07 mg/dL (0.55-1.02)
[2019-08-27] MEDS: METRONIDAZOLE PMX 500MG/100ML 100 ML IV SCH ×2 (06:09→13:11)
[2019-08-27 06:57] VITALS: BP 115/69
[2019-08-27] MEDS: CEFTRIAXONE PMX 2GM/50ML 50 ML IV SCH (08:00)
[2019-08-27] MEDS: PANTOPROZOLE 40MG TABLET PO SCH (08:00)
[2019-08-27] MEDS: LEVOTHYROXINE 88 MCG TABLET PO SCH (08:00)
[2019-08-27] MEDS: FONDAPARINUX 7.5 MG/0.6 ML SQ SCH (13:11)
[2019-08-27] MEDS ORDERED: POLY119P4 PO (14:29)
[2019-08-27 14:35] VITALS: BP 118/57
== END 2019-08-27 17:34 | disposition home or self-care (01) | DRG 389 ==
LOC: ED 05:11 → EDIP 05:33 → 4NE 07:09
PROVIDERS: ADMIT Family Medicine; ATTEND Family Medicine
DX: K56.609 Unspecified intestinal obstruction, unspecified as to partial versus complete obstruction (principal); R65.10 Systemic inflammatory response syndrome (SIRS) of non-infectious origin without acute organ dysfunction; F19.20 Other psychoactive substance dependence, uncomplicated; K52.9 Noninfective gastroenteritis and colitis, unspecified; E03.9 Hypothyroidism, unspecified; E78.00 Pure hypercholesterolemia, unspecified; E78.5 Hyperlipidemia, unspecified; F12.10 Cannabis abuse, uncomplicated; F41.1 Generalized anxiety disorder; I10 Essential (primary) hypertension; N28.1 Cyst of kidney, acquired; J44.9 Chronic obstructive pulmonary disease, unspecified; N20.0 Calculus of kidney; E87.6 Hypokalemia; Z83.79 Family history of other diseases of the digestive system; Z81.1 Family history of alcohol abuse and dependence; Z82.49 Family history of ischemic heart disease and other diseases of the circulatory system; I25.2 Old myocardial infarction; Z79.01 Long term (current) use of anticoagulants; Z85.42 Personal history of malignant neoplasm of other parts of uterus; Z85.71 Personal history of Hodgkin lymphoma; Z85.72 Personal history of non-Hodgkin lymphomas; Z86.711 Personal history of pulmonary embolism; Z86.73 Personal history of transient ischemic attack (TIA), and cerebral infarction without residual deficits; Z87.442 Personal history of urinary calculi; Z87.891 Personal history of nicotine dependence; Z90.49 Acquired absence of other specified parts of digestive tract; Z90.710 Acquired absence of both cervix and uterus; Z90.81 Acquired absence of spleen; Z95.5 Presence of coronary angioplasty implant and graft; Z86.718 Personal history of other venous thrombosis and embolism; Z88.0 Allergy status to penicillin; Z88.8 Allergy status to other drugs, medicaments and biological substances; Z99.81 Dependence on supplemental oxygen
CPT/HCPCS: 36415; 71045; 74177; 80053; 81001; 82272; 82977; 83605; 83615; 83690; 84075; 84080; 84443; 84484; 85025; 85651; 87040; 87086; 87338; 93005; 96365; 96375; 96376; 99285; G0378; J0696; J0744; J1170; J2405; J3480; Q9967; J1652; J7120

== ENCOUNTER 2019-09-15 02:15 | Emergency (ER) | payer OTHER ==
[~2019-09-15] VITALS: Ht 165.1 cm; Wt 98.7 kg
[~2019-09-15 02:15] MED LIST changes: +POLY119P4 PO
--- NOTE | 2019-09-15 02:20 | NUR ---
ASSESSMENT MADE. PA AT BEDSIDE.
[2019-09-15] MEDS ORDERED: HYDROcodone/APAP 5/325 TABLET ONE (02:28)
[2019-09-15] MEDS ORDERED: HYDROcodone/APAP 5/325 TABLET PO ONE (02:30)
--- NOTE | 2019-09-15 02:33 | NUR ---
PATIENT MEDICATED FOR PAIN. TO ULTRASOUND.
[2019-09-15] MEDS ORDERED: HYDROmorphone 1 MG/ML, 1ML INJ ONE (03:34)
[2019-09-15] MEDS ORDERED: HYDROmorphone 1 MG/ML, 1ML INJ IM ONE (04:00)
--- NOTE | 2019-09-15 04:07 | NUR ---
AT BEDSIDE FOR RECHECK. PT TO BE DC'D. SPOUSE WAS CALLED AND HE STATES HE WILL COME BOILER TUBE REAMER THE PATIENT.
--- NOTE | 2019-09-15 04:34 | NUR ---
PTS SPOUSE HAS ARRIVED. SPOUSE BROUGHT TO ROOM. TECH AT BEDSIDE FOR TAYA WRAP.
[2019-09-15 04:35] VITALS: BP 138/85
== END 2019-09-15 04:39 | disposition home or self-care (01) ==
LOC: ED 03:31
DX: M25.462 Effusion, left knee (principal); M79.662 Pain in left lower leg; K21.9 Gastro-esophageal reflux disease without esophagitis; I25.10 Atherosclerotic heart disease of native coronary artery without angina pectoris; I25.2 Old myocardial infarction; I10 Essential (primary) hypertension; E03.9 Hypothyroidism, unspecified; Z86.73 Personal history of transient ischemic attack (TIA), and cerebral infarction without residual deficits
CPT/HCPCS: 73564; 93971; 96372; 99284; J1170

== ENCOUNTER 2019-11-24 19:31 | Emergency (ER) | payer OTHER ==
[~2019-11-24] VITALS: Ht 165.1 cm; Wt 98.0 kg
--- NOTE | 2019-11-24 19:52 | NUR ---
PT TO XRAY.
[2019-11-24] MEDS ORDERED: PLEASE ENTER HEIGHT AND WEIGHT MC SCH (20:00)
[2019-11-24] MEDS ORDERED: SODIUM CHLORIDE FLUSH 10ML SYR IVF ONE (20:00)
[2019-11-24] MEDS ORDERED: ONDANSETRON 2MG/ML, 2ML IVPush ONE (20:00)
[2019-11-24 20:21] LABS: BASOPHILS # (AUTO) 0.03 x10^3/uL (0-0.1); BASOPHILS % (AUTO) 0 % (0-1); EOSINOPHILS # (AUTO) 0.21 x10^3/uL (0-0.4); EOSINOPHILS % (AUTO) 2 % (1-7); LYMPHOCYTES # (AUTO) 2.08 x10^3/uL (1-3.4); LYMPHOCYTES % (AUTO) 16 % (22-44); MD NO; MEAN CORPUSCULAR HEMOGLOBIN 25.2 pg (27.0-34.8); MEAN CORPUSCULAR HGB CONC 31.3 g/dL (32.4-35.8); MEAN CORPUSCULAR VOLUME 80.6 fL (80-100); MONOCYTES % (AUTO) 5 % (2-9); NEUTROPHILS # (AUTO) 9.83 x10^3/uL (1.8-6.8); NEUTROPHILS % (AUTO) 77 % (42-75); PLATELET COUNT 522 x10^3/uL (130-400); RED BLOOD COUNT 4.94 x10^6/uL (3.82-5.3); RED CELL DISTRIBUTION WIDTH 18.9 % (9.6-15.2)
[2019-11-24 20:28] LABS: ALBUMIN 3.3 g/dL (3.4-5.0); ANION GAP 8 mmol/L (5-15); CALCIUM 8.8 mg/dL (8.5-10.1); CHLORIDE 109 mmol/L (98-107)
[2019-11-24] MEDS ORDERED: ONDANSETRON 2MG/ML, 2ML ONE (20:28)
[2019-11-24 20:36] LABS: ALANINE AMINOTRANSFERASE 16 U/L (12-78); ALKALINE PHOSPHATASE 147 U/L (45-117); BILIRUBIN,TOTAL 0.5 mg/dL (0.2-1.0); CREATININE 0.99 mg/dL (0.55-1.02); TROPONIN I < 0.015 ng/mL (0.000-0.045)
[2019-11-24] MEDS: SODIUM CHLORIDE 0.9% 1,000ML IVBOLUS ONE ×2 (20:36→20:56)
[2019-11-24] MEDS ORDERED: MAALOX/HYOSCYAMINE/LIDOCAINE 45 ML BTL ONE (20:54)
[2019-11-24] MEDS ORDERED: ONDANSETRON ODT 4 MG ONE (20:54)
[2019-11-24] MEDS ORDERED: MAALOX/HYOSCYAMINE/LIDOCAINE 45 ML BTL PO ONE (21:00)
[2019-11-24] MEDS ORDERED: ONDANSETRON ODT 4 MG PO ONE (21:00)
--- NOTE | 2019-11-24 21:00 | NUR ---
PT MEDICATED PER AUG. IV PLACED BY EMS DC'D DUE TO INFILTRATION.
[2019-11-24 21:27] VITALS: BP 140/68
[2019-11-25] MEDS ORDERED: AMLO-150 PO (02:45)
[2019-11-25] MEDS ORDERED: CITA20TA9 PO (02:45)
[2019-11-25] MEDS ORDERED: CLOP75TA PO (02:45)
== END 2019-11-24 21:39 | disposition home or self-care (01) ==
LOC: ED 21:15
DX: K21.0 Gastro-esophageal reflux disease with esophagitis (principal); E78.00 Pure hypercholesterolemia, unspecified; I10 Essential (primary) hypertension; E03.9 Hypothyroidism, unspecified; E78.5 Hyperlipidemia, unspecified; Z86.73 Personal history of transient ischemic attack (TIA), and cerebral infarction without residual deficits; Z90.89 Acquired absence of other organs; Z90.49 Acquired absence of other specified parts of digestive tract; Z90.710 Acquired absence of both cervix and uterus
CPT/HCPCS: 36415; 74022; 80053; 83690; 84484; 85025; 93005; 96374; 99283; J2405; Q0162; J7030

== ENCOUNTER 2020-01-01 02:25 | Inpatient (IN) | payer OTHER ==
[~2020-01-01] VITALS: Ht 167.6 cm; Wt 100.9 kg
[~2020-01-01 02:25] MED LIST changes: +AMLO-150 PO
--- NOTE | 2020-01-01 02:46 | NUR ---
FIRST CONTACT WITH PT: PT STATES SHE CAME IN TODAY DUE TO ABDOMINAL PAIN. PT STATES ITS 03/29 AND THAT SHE HAS DIARRHEA THATS BEEN HAPPENING FOR A FEW DAYS NOW. PT INFORMED RN SHES ALSO BEEN VOMITTING YELLOWISH CLEAR BILE TODAY. AT BEDSIDE. GROSS NEURO INTACT, SKIN IS CLAMMY TO TOUCH, DIFFUSE ABDOMINAL TENDERNESS NOTED, PULSES 2+, DENIES PASSING GAS, RESPIRATORY RATE INCREASED LIKELY DUE TO PAIN AND DISCOMFORT. EDGAR SALMON MD AT BS FOR EVAL AND POC. PT PLACED ON ECG, SPO2, BP MONITORING. PT TACHY IN 120S ON MONITOR BS COMMODE BROUGHT IN FOR PT
[2020-01-01] MEDS ORDERED: ONDANSETRON 2MG/ML, 2ML ONE (02:50)
[2020-01-01] MEDS ORDERED: MORPHINE SULFATE 4 MG/ML, 1ML ONE (02:51)
[2020-01-01] MEDS ORDERED: MORPHINE SULFATE 4 MG/ML, 1ML IVPush PRN (03:00)
[2020-01-01] MEDS ORDERED: SODIUM CHLORIDE 0.9% 1,000ML IVBOLUS ONE (03:00)
[2020-01-01] MEDS ORDERED: ONDANSETRON 2MG/ML, 2ML IVPush ONE (03:00)
[2020-01-01] MEDS ORDERED: HYDROmorphone 2 MG/ML, 1ML ONE ×2 (03:16→04:36)
[2020-01-01] MEDS: HYDROmorphone 2 MG/ML, 1ML IVPush PRN ×2 (03:22→04:40)
[2020-01-01 03:33] LABS: INTERNATIONAL NORMALIZED RATIO 1.41 (0.93-1.1)
[2020-01-01 03:35] LABS: ALANINE AMINOTRANSFERASE 19 U/L (12-78); ALBUMIN 3.2 g/dL (3.4-5.0); ANION GAP 10 mmol/L (5-15); CALCIUM 9.2 mg/dL (8.5-10.1); CHLORIDE 111 mmol/L (98-107); CREATININE 1.14 mg/dL (0.55-1.02)
[2020-01-01 03:38] LABS: ALKALINE PHOSPHATASE 136 U/L (45-117); BILIRUBIN,TOTAL 0.6 mg/dL (0.2-1.0); TOTAL PROTEIN 6.8 g/dL (6.4-8.2)
[2020-01-01 03:39] LABS: MEAN CORPUSCULAR HGB CONC 30.8 g/dL (32.4-35.8); MEAN CORPUSCULAR VOLUME 77.7 fL (80-100); PLATELET COUNT 450 x10^3/uL (130-400); RED BLOOD COUNT 5.08 x10^6/uL (3.82-5.3); RED CELL DISTRIBUTION WIDTH 20.5 % (9.6-15.2)
[2020-01-01 03:43] LABS: MD YES
--- NOTE | 2020-01-01 03:46 | NUR ---
LATE ENTRY: PT MEDICATED PER MAR, NO CHANGE IN CONDITION. WAITING ON TEST RESULTS. AT , [facility].
[2020-01-01 03:49] LABS: LYMPH#(MANUAL) 3.91 x10^3/uL (1-3.4); LYMPHS% (MANUAL) 18 % (22-44); MONOS#(MANUAL) 0.65 x10^3/uL (0.3-2.7); MONOS% (MANUAL) 3 % (2-9); SEG#(MANUAL) 17.14 x10^3/uL (1.8-6.8); SEGS% (MANUAL) 79 % (42-75)
[2020-01-01 03:50] LABS: ANISOCYTOSIS 1+; OVALOCYTES 1+; POLYCHROMASIA 1+
[2020-01-01 03:51] LABS: <PLATELET ESTIMATE> INCREASED; <PLT MORPHOLOGY> NORMAL PLT MORPH; CRENATED 1+; PMNS WITH VACUOLES 1+
[2020-01-01] MEDS ORDERED: OMNIPAQUE 350 MG/ML, 100ML BOTTLE ONE (04:13)
[2020-01-01] MEDS ORDERED: METRONIDAZOLE PMX 500MG/100ML 100 ML ONE (04:15)
[2020-01-01] MEDS ORDERED: CEFTRIAXONE PMX 1GM/50ML 50 ML ONE (04:15)
[2020-01-01] MEDS ORDERED: CEFTRIAXONE PMX 1GM/50ML 50 ML IV ONE (04:30)
[2020-01-01] MEDS ORDERED: METRONIDAZOLE PMX 500MG/100ML 100 ML IV ONE (04:30)
--- NOTE | 2020-01-01 04:40 | NUR ---
LATE ENTRY: PT MEDICATED PER MAR, PAIN DECREASED BUT PT STILL STATING SHE HURTS. PT APPEARS SLIGHTLY MORE COMFORTABLE. RESP WNL, VSS. AT BS, WCTM.
[2020-01-01] MEDS ORDERED: POTASSIUM CHLORIDE 20 MEQ in SODIUM CHLORIDE 0.9% 250 ML IV ONE (05:30)
--- NOTE | 2020-01-01 05:57 | NUR ---
PT AMBULATED TO AND FROM RESTROOM WITH A SMOOTH AND STEADY GAIT. PT HAD LOOSE STOOL. PT NAD, REPORTS PAIN IS DECREASED. RESTING IN GURNEY UNDER BLANKETS. WCTM. WAITING FOR ADMIT BED.
--- NOTE | 2020-01-01 06:00 | NUR ---
PT REFUSED NG TUBE STATING "NO I WONT HAVE THAT THING, ITS BARBARIC!"
[2020-01-01] MEDS ORDERED: NS + 20MEQ KCL 1,000 ML IV ONE (06:03)
--- NOTE | 2020-01-01 06:21 | NUR ---
report called to porfirio lopez. pt care to be transferred when taken to the floor. pt condition unchanged. states she is more comfortable now. wctm until transfer
[2020-01-01] MEDS ORDERED: NS + 20MEQ KCL 1,000 ML IV SCH (06:50)
[2020-01-01] MEDS ORDERED: ONDANSETRON 2MG/ML, 2ML IVPush PRN (07:00)
[2020-01-01] MEDS ORDERED: HYDROmorphone 2 MG/ML, 1ML IVPush PRN (07:00)
[2020-01-01] MEDS ORDERED: POLYETHYLENE GLYCOL 17 GM PACKET PO PRN (07:00)
[2020-01-01] MEDS ORDERED: Enoxaparin 1 mg/kg protocol SQ SCH (07:00)
[2020-01-01] MEDS ORDERED: HYDROcodone/APAP 5/325 TABLET PO PRN (07:00)
[2020-01-01] MEDS ORDERED: DOCUSATE 100 MG CAPSULE PO PRN (07:00)
[2020-01-01] MEDS ORDERED: hydrALAzine 20 MG/ML, 1ML IVPush PRN (07:30)
[2020-01-01] MEDS ORDERED: LABETALOL 5MG/ML, 20ML IVPush PRN (07:30)
[2020-01-01] MEDS: METRONIDAZOLE PMX 500MG/100ML 100 ML IV SCH ×3 (08:30→23:43)
[2020-01-01] MEDS: ENOXAPARIN 100 MG/ML SQ SCH ×2 (09:00→21:21)
[2020-01-01 09:01] VITALS: BP 123/69
[2020-01-01] MEDS: CEFTRIAXONE PMX 1GM/50ML 50 ML IV SCH (10:26)
[2020-01-01 14:38] VITALS: BP 91/53
[2020-01-01 18:00] VITALS: BP 121/72
[2020-01-01 20:40] VITALS: BP 130/66
[2020-01-01] MEDS: ACETAMINOPHEN 325 MG TABLET PO PRN (21:20)
[2020-01-02 00:37] VITALS: BP 115/66
[2020-01-02 04:58] VITALS: BP 117/67
[2020-01-02 05:38] LABS: CHLORIDE 113 mmol/L (98-107)
[2020-01-02 05:46] LABS: ANION GAP 5 mmol/L (5-15); CALCIUM 7.7 mg/dL (8.5-10.1); CREATININE 0.84 mg/dL (0.55-1.02)
[2020-01-02 05:56] LABS: BASOPHILS # (AUTO) 0.05 x10^3/uL (0-0.1); BASOPHILS % (AUTO) 1 % (0-1); EOSINOPHILS # (AUTO) 0.26 x10^3/uL (0-0.4); EOSINOPHILS % (AUTO) 4 % (1-7); LYMPHOCYTES # (AUTO) 2.12 x10^3/uL (1-3.4); LYMPHOCYTES % (AUTO) 30 % (22-44); MD NO; MEAN CORPUSCULAR HEMOGLOBIN 24.3 pg (27.0-34.8); MEAN CORPUSCULAR HGB CONC 30.8 g/dL (32.4-35.8); MEAN PLATELET VOLUME 9.4 fL (7.4-10.4); MONOCYTES # (AUTO) 0.64 x10^3/uL (0.2-0.8); MONOCYTES % (AUTO) 9 % (2-9); NEUTROPHILS # (AUTO) 4.01 x10^3/uL (1.8-6.8); NEUTROPHILS % (AUTO) 57 % (42-75); PLATELET COUNT 362 x10^3/uL (130-400); RED BLOOD COUNT 3.93 x10^6/uL (3.82-5.3)
[2020-01-02 06:22] LABS: TROPONIN I < 0.015 ng/mL (0.000-0.045)
[2020-01-02] MEDS ORDERED: MAALOX/HYOSCYAMINE/LIDOCAINE 45 ML BTL PO ONE (06:30)
[2020-01-02 06:55] VITALS: BP 101/61
[2020-01-02 08:30] LABS: TOTAL IRON BINDING CAPACITY 358 mcg/dL (250-450)
[2020-01-02] MEDS ORDERED: MAGNESIUM SULFATE PMX IV ONE (08:30)
[2020-01-02 08:32] LABS: % IRON SATURATION 14 % (20-55); IRON LEVEL 50 mcg/dL (50-170)
[2020-01-02] MEDS: METRONIDAZOLE PMX 500MG/100ML 100 ML IV SCH (08:43)
[2020-01-02] MEDS ORDERED: CITALOPRAM 20 MG TABLET PO SCH (09:00)
[2020-01-02] MEDS ORDERED: CLOPIDOGREL 75 MG TABLET PO SCH (09:00)
[2020-01-02] MEDS ORDERED: LEVOTHYROXINE 88 MCG TABLET PO SCH (09:00)
[2020-01-02] MEDS ORDERED: AMLODIPINE 5 MG TABLET PO SCH (09:00)
[2020-01-02] MEDS ORDERED: IRON DEXTRAN COMPLEX 25 MG in SODIUM CHLORIDE 0.9% 50 ML IV ONE (09:30)
[2020-01-02] MEDS: CEFTRIAXONE PMX 1GM/50ML 50 ML IV SCH (10:08)
[2020-01-02] MEDS: ENOXAPARIN 100 MG/ML SQ SCH ×2 (10:09→21:00)
[2020-01-02] MEDS ORDERED: IRON DEXTRAN COMPLEX 1,450 MG in SODIUM CHLORIDE 0.9% 250 ML IV ONE (10:30)
[2020-01-02] MEDS ORDERED: HYDR-3237 PO (11:15)
[2020-01-02 11:16] LABS: INTERNATIONAL NORMALIZED RATIO 1.35 (0.93-1.1); PROTHROMBIN TIME 14.4 Seconds (9.6-11.5)
[2020-01-02 11:22] LABS: TROPONIN I < 0.015 ng/mL (0.000-0.045)
[2020-01-02] MEDS: MAGNESIUM SULFATE IV ONE ×2 (12:33→12:34)
[2020-01-02] MEDS: SODIUM CHLORIDE 0.9% IV ONE ×2 (12:33→12:34)
[2020-01-02] MEDS ORDERED: WARFARIN 5 MG TABLET PO-COUM ONE (13:00)
[2020-01-02 13:33] VITALS: BP 118/63
[2020-01-02] MEDS ORDERED: NS + 20MEQ KCL 1,000 ML IV SCH (15:00)
[2020-01-02 18:51] VITALS: BP 118/63
[2020-01-02] MEDS ORDERED: ATORVASTATIN 40 MG TABLET PO SCH (21:00)
[2020-01-02 22:00] VITALS: BP 116/79
[2020-01-02] MEDS: ACETAMINOPHEN 325 MG TABLET PO PRN (22:33)
== END 2020-01-02 23:16 | disposition home or self-care (01) | DRG 389 ==
LOC: ED 03:12 → EDIP 05:47 → 3N 06:35
PROVIDERS: ADMIT Family Medicine; ATTEND Family Medicine
DX: K56.51 Intestinal adhesions [bands], with partial obstruction (principal); E87.2 Acidosis; N17.9 Acute kidney failure, unspecified; E86.0 Dehydration; E03.9 Hypothyroidism, unspecified; I25.10 Atherosclerotic heart disease of native coronary artery without angina pectoris; F32.9 Major depressive disorder, single episode, unspecified; K21.9 Gastro-esophageal reflux disease without esophagitis; E87.6 Hypokalemia; D50.9 Iron deficiency anemia, unspecified; E78.00 Pure hypercholesterolemia, unspecified; E78.5 Hyperlipidemia, unspecified; I50.9 Heart failure, unspecified; I11.0 Hypertensive heart disease with heart failure; D72.829 Elevated white blood cell count, unspecified; E83.42 Hypomagnesemia; Z88.0 Allergy status to penicillin; Z88.5 Allergy status to narcotic agent; Z88.8 Allergy status to other drugs, medicaments and biological substances; Z79.01 Long term (current) use of anticoagulants; Z82.49 Family history of ischemic heart disease and other diseases of the circulatory system; Z90.49 Acquired absence of other specified parts of digestive tract; Z90.710 Acquired absence of both cervix and uterus; Z86.711 Personal history of pulmonary embolism; Z86.73 Personal history of transient ischemic attack (TIA), and cerebral infarction without residual deficits; Z74.01 Bed confinement status
CPT/HCPCS: 36415; 71045; 74177; 74250; 80048; 80053; 83540; 83550; 83605; 83690; 83735; 84484; 85025; 85610; 87040; 93005; 96361; 96365; 96375; 96376; 99291; G0378; J0696; J1170; J1650; J2405; J3475; J3480; Q9967; J7030; J7050

== ENCOUNTER 2020-08-17 01:36 | Emergency (ER) | payer OTHER ==
[~2020-08-17] VITALS: Ht 165.1 cm; Wt 98.0 kg
[~2020-08-17 01:36] MED LIST changes: +HYDR-3237 PO; -OXYC-302 PO; +OXYC1TAB14 PO
--- NOTE | 2020-08-17 01:36 | NUR ---
INITIAL PT CONTACT. PT PRESENTS TO ED VIA EMS C/O "HEARTBURN" SINCE YESTERDAY. PT TOOK OMEPRAZOLE AT HOME, NO RELIEF. PT SITTING UPRIGHT ON GURNEY, EKG IN PROGRESS. PT DENIES ANY NEEDS AT THIS TIME. ERP AT BEDSIDE.
[2020-08-17] MEDS ORDERED: ONDANSETRON ODT 4 MG ONE (01:53)
[2020-08-17] MEDS ORDERED: MAALOX/HYOSCYAMINE/LIDOCAINE 45 ML BTL ONE (01:53)
[2020-08-17] MEDS ORDERED: MAALOX/HYOSCYAMINE/LIDOCAINE 45 ML BTL PO ONE (02:00)
[2020-08-17] MEDS ORDERED: ONDANSETRON ODT 4 MG PO ONE (02:00)
[2020-08-17 02:13] LABS: ALANINE AMINOTRANSFERASE 14 U/L (12-78); ALBUMIN 2.8 g/dL (3.4-5.0); ANION GAP 9 mmol/L (5-15); CALCIUM 8.1 mg/dL (8.5-10.1); CHLORIDE 112 mmol/L (98-107); CREATININE 0.83 mg/dL (0.55-1.02)
[2020-08-17 02:18] LABS: ALKALINE PHOSPHATASE 163 U/L (45-117); BILIRUBIN,TOTAL 0.2 mg/dL (0.2-1.0); TOTAL PROTEIN 6.3 g/dL (6.4-8.2); TROPONIN I < 0.015 ng/mL (0.000-0.045)
[2020-08-17 02:19] LABS: BASOPHILS % (AUTO) 1 % (0-1); EOSINOPHILS % (AUTO) 3 % (1-7); LYMPHOCYTES % (AUTO) 28 % (22-44); MEAN CORPUSCULAR HEMOGLOBIN 24.1 pg (27.0-34.8); MEAN CORPUSCULAR HGB CONC 32.5 g/dL (32.4-35.8); MEAN PLATELET VOLUME 8.1 fL (7.4-10.4); MONOCYTES % (AUTO) 11 % (2-9); NEUTROPHILS % (AUTO) 58 % (42-75); PLATELET COUNT 490 x10^3/uL (130-400); RED BLOOD COUNT 4.19 x10^6/uL (3.82-5.3); RED CELL DISTRIBUTION WIDTH 20.6 % (9.6-15.2)
[2020-08-17 02:34] VITALS: BP 124/59
[2020-08-17 02:42] LABS: MD MORPH REVIEW ONLY
[2020-08-17 02:48] LABS: ANISOCYTOSIS 1+; MICROCYTOSIS 1+; POLYCHROMASIA 1+
[2020-08-17 02:49] LABS: OVALOCYTES 1+; SCHISTOCYTES 1+
[2020-08-17 02:50] LABS: <PLATELET ESTIMATE> ADEQUATE; <PLT MORPHOLOGY> NORMAL PLT MORPH; ECHINOCYTES 1+
--- NOTE | 2020-08-17 02:50 | NUR ---
Patient given discharge instructions and they have confirmed that they understand the instructions. Patient ambulatory with steady gait.
== END 2020-08-17 02:58 | disposition home or self-care (01) ==
LOC: ED 02:46
DX: K21.9 Gastro-esophageal reflux disease without esophagitis (principal); R11.0 Nausea; I11.9 Hypertensive heart disease without heart failure; I25.10 Atherosclerotic heart disease of native coronary artery without angina pectoris; I25.2 Old myocardial infarction; Z86.711 Personal history of pulmonary embolism; J45.909 Unspecified asthma, uncomplicated; Z86.718 Personal history of other venous thrombosis and embolism; Z90.49 Acquired absence of other specified parts of digestive tract; Z90.710 Acquired absence of both cervix and uterus; Z95.9 Presence of cardiac and vascular implant and graft, unspecified
CPT/HCPCS: 36415; 71045; 80053; 83690; 84484; 85025; 93005; 99285; Q0162

== ENCOUNTER 2020-10-27 15:38 | Emergency (ER) | payer MEDICARE ==
[~2020-10-27] VITALS: Ht 165.1 cm; Wt 90.0 kg
[~2020-10-27 15:38] MED LIST changes: +ASPI-963 PO; +ATOR-2 PO; +AZIT250T89 PO; +PANT40TA6 PO; +PRED50TA PO
--- NOTE | 2020-10-27 15:47 | NUR ---
EMS report received from secondary RN. Report received from that RN and special agent in charge completed at this time. Warm blanket provided with call light in reach. Neuro c/o resolved at this time.
--- NOTE | 2020-10-27 16:18 | NUR ---
Pt remains in room without acute change from initial fertilizer loader. Awaiting MD exam and orders.
--- NOTE | 2020-10-27 16:30 | NUR ---
MD at bedside at this time and time study technologist present for taking pt for MRI now. VS remain with HTN present and NSR on EKG.
--- NOTE | 2020-10-27 16:32 | NUR ---
CARD TAPE CONVERTER OPERATOR: PT TO MRI WITH TECH TRANSPORT
[2020-10-27 16:46] LABS: BASOPHILS % (AUTO) 1 % (0-1); EOSINOPHILS % (AUTO) 3 % (1-7); LYMPHOCYTES % (AUTO) 25 % (22-44); MEAN CORPUSCULAR HEMOGLOBIN 23.4 pg (27.0-34.8); MEAN CORPUSCULAR HGB CONC 31.1 g/dL (32.4-35.8); MEAN PLATELET VOLUME 8.2 fL (7.4-10.4); MONOCYTES % (AUTO) 13 % (2-9); NEUTROPHILS % (AUTO) 59 % (42-75); PLATELET COUNT 504 x10^3/uL (130-400); RED BLOOD COUNT 4.42 x10^6/uL (3.82-5.3); RED CELL DISTRIBUTION WIDTH 22.3 % (9.6-15.2)
[2020-10-27 16:53] LABS: ALBUMIN 3.4 g/dL (3.4-5.0); ANION GAP 5 mmol/L (5-15); CALCIUM 9.2 mg/dL (8.5-10.1); CHLORIDE 111 mmol/L (98-107); CREATININE 0.81 mg/dL (0.55-1.02)
--- NOTE | 2020-10-27 17:03 | NUR ---
RADIATION CONTROL WORKER: PT RTD FROM MRI
[2020-10-27 17:14] LABS: MD MORPH REVIEW ONLY
[2020-10-27 17:15] LABS: ANISOCYTOSIS 1+; OVALOCYTES 1+; SCHISTOCYTES 1+
[2020-10-27 17:16] LABS: <PLATELET ESTIMATE> ADEQUATE; <PLT MORPHOLOGY> NORMAL PLT MORPH; CRENATED 1+; TARGET CELLS 1+
[2020-10-27] MEDS ORDERED: CLOPIDOGREL 75 MG TABLET ONE (17:35)
--- NOTE | 2020-10-27 17:38 | NUR ---
MD at bedside to discuss findings and plan of care. PO med given as ordered. Awaiting d/c paperwork.
[2020-10-27 17:42] VITALS: BP 139/42
[2020-10-27] MEDS ORDERED: CLOPIDOGREL 75 MG TABLET PO ONE (18:00)
== END 2020-10-27 17:59 | disposition home or self-care (01) ==
LOC: ED 17:53
DX: G45.9 Transient cerebral ischemic attack, unspecified (principal); I10 Essential (primary) hypertension; E11.9 Type 2 diabetes mellitus without complications; I25.2 Old myocardial infarction; E78.5 Hyperlipidemia, unspecified; Z90.89 Acquired absence of other organs; Z86.73 Personal history of transient ischemic attack (TIA), and cerebral infarction without residual deficits; Z90.49 Acquired absence of other specified parts of digestive tract; Z90.710 Acquired absence of both cervix and uterus; Z88.0 Allergy status to penicillin; Z87.891 Personal history of nicotine dependence; Z88.9 Allergy status to unspecified drugs, medicaments and biological substances
CPT/HCPCS: 36415; 70551; 80048; 82040; 85025; 99284

== ENCOUNTER → 2020-12-20 | Outpatient (CLI) | payer MEDICARE ==
[~2020-12-20] MED LIST changes: +FERR-36 PO; -LACT1CAP40 PO; +LACT1CAP45 PO
== END | disposition home or self-care (01) ==
LOC: RAD 08:48
PROVIDERS: ATTEND Internal Medicine
DX: D50.9 Iron deficiency anemia, unspecified (principal)
CPT/HCPCS: 74018

== ENCOUNTER → 2020-12-21 | Outpatient (CLI) | payer MEDICARE | END | disposition home or self-care (01) | LOC: RAD 08:43 | PROVIDERS: ATTEND Internal Medicine | DX: D50.9 Iron deficiency anemia, unspecified (principal) | CPT/HCPCS: 74018 ==

== ENCOUNTER 2021-01-16 22:46 | Emergency (ER) | payer SELFPAY ==
[~2021-01-16] VITALS: Ht 167.6 cm; Wt 91.3 kg
[~2021-01-16 22:46] MED LIST changes: +ATOR20TA37 PO; +DICY20TA4 PO; +LEVO25TA2 PO
[2021-01-16] MEDS ORDERED: SODIUM CHLORIDE 0.9% 1,000ML IVBOLUS ONE (23:00)
[2021-01-16] MEDS ORDERED: HYDROmorphone 1 MG/ML, 1ML INJ IV ONE (23:00)
[2021-01-16] MEDS ORDERED: SODIUM CHLORIDE FLUSH 10ML SYR IVF ONE (23:00)
[2021-01-16] MEDS ORDERED: DIPHENHYDRAMINE 50 MG/ML, 1ML IVPush ONE (23:00)
--- NOTE | 2021-01-16 23:16 | NUR ---
TASK RN: IV PLACED FOR PRIMARY RN, PT AGGRESSIVE AND LOUDLY TALKING AT THIS RN WHEN ASKING CLINICAL QUESTIONS. PT NOT COOPERATIVE WHILE TRYING TO PLACE PT ON MONITOR. DR FERRARI AWARE. PHYSICIAN RELATIONS REPRESENTATIVE AWARE. FELA PRIMARY RN AWARE.
[2021-01-16 23:18] LABS: BASOPHILS % (AUTO) 1 % (0-1); EOSINOPHILS % (AUTO) 2 % (1-7); LYMPHOCYTES % (AUTO) 22 % (22-44); MEAN CORPUSCULAR HEMOGLOBIN 26.1 pg (27.0-34.8); MEAN CORPUSCULAR HGB CONC 32.4 g/dL (32.4-35.8); MEAN PLATELET VOLUME 8.4 fL (7.4-10.4); MONOCYTES % (AUTO) 9 % (2-9); NEUTROPHILS % (AUTO) 66 % (42-75); PLATELET COUNT 448 x10^3/uL (130-400); RED BLOOD COUNT 4.86 x10^6/uL (3.82-5.3); RED CELL DISTRIBUTION WIDTH 21.4 % (9.6-15.2)
[2021-01-16 23:31] LABS: ANION GAP 5 mmol/L (5-15); CALCIUM 8.9 mg/dL (8.5-10.1); CHLORIDE 111 mmol/L (98-107); CREATININE 1.08 mg/dL (0.55-1.02)
[2021-01-16 23:32] LABS: ALANINE AMINOTRANSFERASE 20 U/L (12-78)
[2021-01-16 23:34] LABS: ALKALINE PHOSPHATASE 128 U/L (45-117); BILIRUBIN,TOTAL 0.2 mg/dL (0.2-1.0); TOTAL PROTEIN 6.7 g/dL (6.4-8.2)
--- NOTE | 2021-01-16 23:50 | NUR ---
TASK RN: PT TO CT
[2021-01-16] MEDS ORDERED: OMNIPAQUE 350 MG/ML, 100ML BOTTLE ONE (23:59)
[2021-01-17] MEDS ORDERED: DIPHENHYDRAMINE 50 MG/ML, 1ML ONE (00:21)
[2021-01-17] MEDS ORDERED: HYDROmorphone 1 MG/ML, 1ML INJ ONE (00:21)
--- NOTE | 2021-01-17 00:36 | NUR ---
PT C/O OF ABDOMINAL PAIN ACROSS WAIST SINCE 1600 YESTERDAY. DENIES N/V/D, CP, SOB ATTACHED TO MONITORS. VSS. PT APPEARS IN PAIN. BED IN LOW, RALS ENGAGED. CALL LIGHT ON LAP. AT BEDSIDE
--- NOTE | 2021-01-17 01:37 | NUR ---
PT AMBULATED TO BATHROOM AND BACK WITH STEADY GAIT. PT OBTAINING US
[2021-01-17 01:58] LABS: MICROSCOPIC NOT IND
[2021-01-17 02:31] VITALS: BP 148/74
--- NOTE | 2021-01-17 02:31 | NUR ---
Patient/Caregiver given discharge instructions and they have confirmed that they understand the instructions. Patient ambulatory with steady gait. NAD, all questions answered appropriately, denies additional needs at this time. No personal belongings left in room after discharge.
== END 2021-01-17 02:32 | disposition home or self-care (01) ==
LOC: ED 23:31
DX: K56.0 Paralytic ileus (principal); R00.0 Tachycardia, unspecified; I25.2 Old myocardial infarction; E78.5 Hyperlipidemia, unspecified; E03.9 Hypothyroidism, unspecified; E78.00 Pure hypercholesterolemia, unspecified; K21.9 Gastro-esophageal reflux disease without esophagitis; M19.90 Unspecified osteoarthritis, unspecified site; J45.909 Unspecified asthma, uncomplicated; G89.29 Other chronic pain; Z90.89 Acquired absence of other organs; Z90.49 Acquired absence of other specified parts of digestive tract; Z87.891 Personal history of nicotine dependence; Z98.61 Coronary angioplasty status; Z86.73 Personal history of transient ischemic attack (TIA), and cerebral infarction without residual deficits
CPT/HCPCS: 36415; 74177; 80053; 81003; 83605; 83690; 85025; 93005; 96361; 96374; 96375; 99285; J1170; J1200; J7030; Q9967

== ENCOUNTER 2021-01-17 19:39 | Inpatient (IN) | payer MEDICARE, OTHER ==
[~2021-01-17] VITALS: Ht 165.1 cm; Wt 99.3 kg
[2021-01-17] MEDS ORDERED: SODIUM CHLORIDE 0.9% 1,000ML IVBOLUS ONE ×2 (20:00→21:00)
[2021-01-17] MEDS ORDERED: SODIUM CHLORIDE FLUSH 10ML SYR IVF ONE (20:00)
[2021-01-17] MEDS ORDERED: ONDANSETRON 2MG/ML, 2ML IVPush ONE (20:00)
--- NOTE | 2021-01-17 20:13 | NUR ---
labs drawn and sent, piv x2, ivf infusing. bgl 157. a&ox4 gcs 15. pale. c/o abd pain across upper quads. vomiting x3 today. diarrhea x1 hour. denies nausea at this time since ems gave her zofran. law in room. pt tbadm, aware, agrees. call carrera in reach. also pt sts legs "gave out" today, fell onto her bottom, no bruising noted. as
[2021-01-17 20:21] LABS: BASOPHILS % (AUTO) 0 % (0-1); EOSINOPHILS % (AUTO) 1 % (1-7); LYMPHOCYTES % (AUTO) 9 % (22-44); MEAN CORPUSCULAR HEMOGLOBIN 26.1 pg (27.0-34.8); MEAN CORPUSCULAR HGB CONC 32.3 g/dL (32.4-35.8); MEAN PLATELET VOLUME 9.1 fL (7.4-10.4); MONOCYTES % (AUTO) 5 % (2-9); NEUTROPHILS % (AUTO) 85 % (42-75); PLATELET COUNT 427 x10^3/uL (130-400); RED BLOOD COUNT 4.96 x10^6/uL (3.82-5.3); RED CELL DISTRIBUTION WIDTH 21.6 % (9.6-15.2)
--- NOTE | 2021-01-17 20:26 | NUR ---
placed on 2lnc sat 86 ra. wears o2 at home sometimes when needed. as
--- NOTE | 2021-01-17 20:27 | NUR ---
SR on monitor 90s. as
[2021-01-17 20:33] LABS: ALANINE AMINOTRANSFERASE 17 U/L (12-78); ANION GAP 7 mmol/L (5-15); CALCIUM 9.3 mg/dL (8.5-10.1); CHLORIDE 112 mmol/L (98-107); CREATININE 1.16 mg/dL (0.55-1.02)
[2021-01-17 20:35] LABS: ALKALINE PHOSPHATASE 125 U/L (45-117); BILIRUBIN,TOTAL 0.6 mg/dL (0.2-1.0); TOTAL PROTEIN 6.5 g/dL (6.4-8.2)
--- NOTE | 2021-01-17 20:38 | NUR ---
trace gamble re: ct results from yest which show ileus vs sbo vs. enteritis vs colitis. sepsis protocol ordered. bp imrproved after 1 liter ns. as
--- NOTE | 2021-01-17 20:42 | NUR ---
no ua ordered bc ua clear this am at 0100. as
[2021-01-17 20:47] LABS: ANISOCYTOSIS 1+; HYPOCHROMIA 1+; OVALOCYTES 1+; TARGET CELLS 1+
[2021-01-17 20:48] LABS: <PLATELET ESTIMATE> INCREASED; <PLT MORPHOLOGY> NORMAL PLT MORPH; ECHINOCYTES 1+
--- NOTE | 2021-01-17 20:51 | NUR ---
lab at bedside for blood cultures. as
--- NOTE | 2021-01-17 20:52 | NUR ---
report to genoveva lopez. as
--- NOTE | 2021-01-17 20:59 | NUR ---
PINK SHEET HANDED OFF TO CAMRYN PATEL.
[2021-01-17] MEDS ORDERED: CEFTRIAXONE 1,000 MG in DEXTROSE 5% 50 ML IVPB ONE (21:00)
[2021-01-17] MEDS ORDERED: METRONIDAZOLE PMX 500MG/100ML 100 ML IV ONE (21:00)
--- NOTE | 2021-01-17 21:15 | NUR ---
PT RESTING, REMAINS ON CR MONITOR, WAITING FOR BED ASSIGNMENT FOR PT TO BE ADMITTED. ICT EDUCATOR AT BEDSIDE TO DRAW BLOOD CULTURES.
[2021-01-17] MEDS ORDERED: METRONIDAZOLE PMX 500MG/100ML 100 ML ONE (21:19)
--- NOTE | 2021-01-17 21:26 | NUR ---
ANTIBIOTICS STARTED, WAITING ON ROOM ASSIGNMENT. PT A&OX4, RESTING IN ROOM WITH LIGHTS DOWN, AND NO ACUTE DISTRESS AT THIS TIME. PT AGREES WITH COURSE OF TREATMENT.
[2021-01-17] MEDS ORDERED: morphine SULFATE 10 MG/ML, 1ML IVPush PRN (22:30)
[2021-01-17] MEDS ORDERED: POLYETHYLENE GLYCOL 17 GM PACKET PO PRN (22:30)
[2021-01-17] MEDS ORDERED: ONDANSETRON 2MG/ML, 2ML IVPush PRN (22:30)
[2021-01-17] MEDS ORDERED: LABETALOL 5MG/ML, 20ML IVPush PRN (22:30)
[2021-01-17] MEDS ORDERED: BACLOFEN 10 MG TABLET PO PRN (22:30)
[2021-01-17] MEDS ORDERED: MELATONIN 5 MG TABLET PO PRN (22:30)
--- NOTE | 2021-01-17 22:36 | NUR ---
REPORT CALLED TO RACHNA PATEL, AND PT TRANSPORTED TO FLOOR BY [employer].
[2021-01-17] MEDS: LACTATED RINGERS 1,000 ML IV SCH (23:15)
[2021-01-17] MEDS: FAMOTIDINE 20 MG/2 ML IVPush SCH (23:15)
[2021-01-17] MEDS: HEPARIN 5,000 UNITS/ML, 1ML SQ SCH (23:15)
[2021-01-18 00:43] VITALS: BP 128/56
[2021-01-18] MEDS: KETOROLAC 30 MG/1 ML IV PRN ×3 (05:04→21:04)
[2021-01-18 06:19] LABS: BASOPHILS % (AUTO) 1 % (0-1); EOSINOPHILS % (AUTO) 2 % (1-7); LYMPHOCYTES % (AUTO) 22 % (22-44); MEAN CORPUSCULAR HEMOGLOBIN 26.2 pg (27.0-34.8); MEAN CORPUSCULAR HGB CONC 32.1 g/dL (32.4-35.8); MONOCYTES % (AUTO) 9 % (2-9); NEUTROPHILS % (AUTO) 66 % (42-75); PLATELET COUNT 328 x10^3/uL (130-400); RED BLOOD COUNT 4.05 x10^6/uL (3.82-5.3); RED CELL DISTRIBUTION WIDTH 21.5 % (9.6-15.2)
[2021-01-18 06:27] LABS: ANION GAP 3 mmol/L (5-15); CALCIUM 8.4 mg/dL (8.5-10.1); CHLORIDE 115 mmol/L (98-107)
[2021-01-18] MEDS: LACTATED RINGERS 1,000 ML IV SCH ×2 (06:43→16:43)
[2021-01-18] MEDS: HEPARIN 5,000 UNITS/ML, 1ML SQ SCH ×3 (06:43→22:30)
[2021-01-18 07:08] VITALS: BP 119/55
[2021-01-18] MEDS ORDERED: POTASSIUM CHLORIDE 20 MEQ TAB.ER.PRT PO ONE (07:30)
[2021-01-18] MEDS: FAMOTIDINE 20 MG/2 ML IVPush SCH ×2 (08:30→20:03)
[2021-01-18] MEDS ORDERED: CEFTRIAXONE 1,000 MG in DEXTROSE 5% 50 ML IVPB SCH (10:00)
[2021-01-18] MEDS ORDERED: CITALOPRAM 20 MG TABLET PO SCH (10:30)
[2021-01-18] MEDS: METRONIDAZOLE PMX 500MG/100ML 100 ML IV SCH ×3 (10:50→22:24)
[2021-01-18 13:12] VITALS: BP 120/75
[2021-01-18 18:26] VITALS: BP 117/51
[2021-01-18] MEDS: CEFTRIAXONE 1,000 MG in DEXTROSE 5% 50 ML IVPB SCH (20:57)
[2021-01-19] MEDS: LACTATED RINGERS 1,000 ML IV SCH (00:16)
[2021-01-19 02:26] VITALS: BP 165/80
[2021-01-19] MEDS: METRONIDAZOLE PMX 500MG/100ML 100 ML IV SCH ×4 (04:15→22:20)
[2021-01-19 05:50] LABS: BASOPHILS % (AUTO) 1 % (0-1); EOSINOPHILS % (AUTO) 5 % (1-7); LYMPHOCYTES % (AUTO) 28 % (22-44); MEAN CORPUSCULAR HGB CONC 33.1 g/dL (32.4-35.8); MEAN PLATELET VOLUME 9.5 fL (7.4-10.4); MONOCYTES % (AUTO) 9 % (2-9); NEUTROPHILS % (AUTO) 58 % (42-75); PLATELET COUNT 327 x10^3/uL (130-400); RED BLOOD COUNT 3.85 x10^6/uL (3.82-5.3); RED CELL DISTRIBUTION WIDTH 21.4 % (9.6-15.2)
[2021-01-19 05:56] LABS: ALBUMIN 2.3 g/dL (3.4-5.0); ANION GAP 3 mmol/L (5-15); CALCIUM 8.4 mg/dL (8.5-10.1); CHLORIDE 112 mmol/L (98-107)
[2021-01-19 06:00] LABS: ALANINE AMINOTRANSFERASE 15 U/L (12-78); ALKALINE PHOSPHATASE 93 U/L (45-117); BILIRUBIN,TOTAL 0.3 mg/dL (0.2-1.0); CREATININE 0.75 mg/dL (0.55-1.02); TOTAL PROTEIN 5.3 g/dL (6.4-8.2)
[2021-01-19] MEDS: HEPARIN 5,000 UNITS/ML, 1ML SQ SCH ×3 (06:04→23:32)
[2021-01-19] MEDS: LEVOTHYROXINE 50 MCG TABLET PO SCH (06:45)
[2021-01-19 07:14] VITALS: BP 135/67
[2021-01-19] MEDS: CEFTRIAXONE 1,000 MG in DEXTROSE 5% 50 ML IVPB SCH (08:36)
[2021-01-19] MEDS: FAMOTIDINE 20 MG/2 ML IVPush SCH ×2 (08:36→20:51)
[2021-01-19 13:27] VITALS: BP 140/79
[2021-01-19] MEDS: ALBUTEROL SULFATE 2.5 MG/3 ML NPPB SCH ×2 (14:10→20:07)
[2021-01-19] MEDS ORDERED: ALBUTEROL SULFATE 2.5 MG/3 ML ONE (14:14)
[2021-01-19 18:40] VITALS: BP 118/68
[2021-01-20 01:52] VITALS: BP 106/68
[2021-01-20] MEDS: METRONIDAZOLE PMX 500MG/100ML 100 ML IV SCH ×2 (04:06→10:19)
[2021-01-20] MEDS: LEVOTHYROXINE 50 MCG TABLET PO SCH (06:39)
[2021-01-20] MEDS: HEPARIN 5,000 UNITS/ML, 1ML SQ SCH (06:40)
[2021-01-20] MEDS: ALBUTEROL SULFATE 2.5 MG/3 ML NPPB SCH ×2 (07:37→12:00)
[2021-01-20 07:42] VITALS: BP 152/73
[2021-01-20] MEDS: CEFTRIAXONE 1,000 MG in DEXTROSE 5% 50 ML IVPB SCH (08:32)
[2021-01-20] MEDS: FAMOTIDINE 20 MG/2 ML IVPush SCH (08:32)
[2021-01-20] MEDS ORDERED: LEVO50TA PO (10:53)
[2021-01-20 12:42] VITALS: BP 132/67
[2021-01-20 12:59] VITALS: BP 148/71
== END 2021-01-20 13:04 | disposition home or self-care (01) | DRG 392 ==
LOC: ED 20:10 → 4NE 22:35 → ED 01-18 03:49 → 4NE 01-18 03:52
PROVIDERS: ADMIT Internal Medicine; ATTEND Hospitalist
DX: K52.9 Noninfective gastroenteritis and colitis, unspecified (principal); K56.7 Ileus, unspecified; E86.1 Hypovolemia; I95.9 Hypotension, unspecified; E87.6 Hypokalemia; E66.01 Morbid (severe) obesity due to excess calories; Z68.36 Body mass index [BMI] 36.0-36.9, adult; D64.9 Anemia, unspecified; E03.9 Hypothyroidism, unspecified; E11.9 Type 2 diabetes mellitus without complications; I10 Essential (primary) hypertension; J45.20 Mild intermittent asthma, uncomplicated; K21.9 Gastro-esophageal reflux disease without esophagitis; M16.12 Unilateral primary osteoarthritis, left hip; Z66 Do not resuscitate; Z87.891 Personal history of nicotine dependence; Z88.0 Allergy status to penicillin; Z71.3 Dietary counseling and surveillance
CPT/HCPCS: 36415; 71045; 74018; 80048; 80053; 82962; 83036; 83605; 83735; 84100; 84439; 84443; 85025; 87040; 94640; 96361; 96374; G0378; J0696; J1644; J1885; J7613; J7030; J7120

== ENCOUNTER → 2021-01-23 | Outpatient (CLI) | payer MEDICARE ==
[~2021-01-23] MED LIST changes: +LEVO50TA PO; +OMNIPAQUE 350 MG/ML, 100ML BOTTLE ONE
== END | disposition home or self-care (01) ==
LOC: RAD 17:27
PROVIDERS: ATTEND Internal Medicine
DX: N20.0 Calculus of kidney (principal); K56.699 Other intestinal obstruction unspecified as to partial versus complete obstruction; Z90.49 Acquired absence of other specified parts of digestive tract
CPT/HCPCS: 74177; Q9967

== ENCOUNTER → 2021-02-02 | Outpatient (CLI) | payer MEDICARE ==
[~2021-02-02] MED LIST changes: -OMNIPAQUE 350 MG/ML, 100ML BOTTLE ONE
== END | disposition home or self-care (01) ==
LOC: RAD 13:36
PROVIDERS: ATTEND Internal Medicine
DX: N20.0 Calculus of kidney (principal); K56.699 Other intestinal obstruction unspecified as to partial versus complete obstruction
CPT/HCPCS: 74021

== ENCOUNTER 2021-03-15 20:30 | Emergency (ER) | payer MEDICARE ==
[~2021-03-15] VITALS: Ht 165.1 cm; Wt 90.9 kg
[~2021-03-15 20:30] MED LIST changes: +OXYC1TAB12 PO; -OXYC1TAB14 PO
[2021-03-15] MEDS ORDERED: ONDANSETRON 2MG/ML, 2ML ONE (21:01)
[2021-03-15] MEDS ORDERED: MORPHINE SULFATE 4 MG/ML, 1ML ONE ×2 (21:01→21:41)
[2021-03-15 21:10] LABS: BASOPHILS % (AUTO) 0 % (0-1); EOSINOPHILS % (AUTO) 1 % (1-7); LYMPHOCYTES % (AUTO) 16 % (22-44); MEAN CORPUSCULAR HEMOGLOBIN 27.1 pg (27.0-34.8); MEAN PLATELET VOLUME 9.3 fL (7.4-10.4); MONOCYTES % (AUTO) 9 % (2-9); NEUTROPHILS % (AUTO) 74 % (42-75); PLATELET COUNT 370 x10^3/uL (130-400); RED BLOOD COUNT 4.67 x10^6/uL (3.82-5.3); RED CELL DISTRIBUTION WIDTH 18.6 % (9.6-15.2)
[2021-03-15 21:12] LABS: ANION GAP 5 mmol/L (5-15); CALCIUM 8.9 mg/dL (8.5-10.1); CHLORIDE 108 mmol/L (98-107)
[2021-03-15 21:13] LABS: ALANINE AMINOTRANSFERASE 15 U/L (12-78); ALBUMIN 2.8 g/dL (3.4-5.0)
[2021-03-15 21:15] LABS: ALKALINE PHOSPHATASE 99 U/L (45-117); BILIRUBIN,TOTAL 0.6 mg/dL (0.2-1.0); TOTAL PROTEIN 6.4 g/dL (6.4-8.2)
[2021-03-15] MEDS: MORPHINE SULFATE 4 MG/ML, 1ML IVPush PRN ×2 (21:20→21:47)
[2021-03-15] MEDS ORDERED: ONDANSETRON 2MG/ML, 2ML IVPush ONE (21:30)
[2021-03-15] MEDS ORDERED: SODIUM CHLORIDE FLUSH 10ML SYR IVF ONE (21:30)
[2021-03-15] MEDS ORDERED: KETOROLAC 30 MG/1 ML IVPush ONE ×2 (22:00→23:00)
[2021-03-15] MEDS ORDERED: KETOROLAC 30 MG/1 ML ONE (22:16)
[2021-03-15] MEDS ORDERED: HYDROmorphone 2 MG/ML, 1ML ONE (22:58)
[2021-03-15] MEDS ORDERED: HYDROmorphone 1 MG/ML, 1ML INJ IV ONE (23:00)
[2021-03-15 23:09] LABS: MICROSCOPIC INDICATED
[2021-03-16] MEDS ORDERED: SODIUM CHLORIDE 0.9% 1,000ML IVBOLUS ONE ×2 (00:30→02:00)
[2021-03-16 03:03] VITALS: BP 112/49
--- NOTE | 2021-03-16 03:03 | NUR ---
pt ambulating at baseline per pt and , states she is ready to go home.
== END 2021-03-16 03:12 | disposition home or self-care (01) ==
LOC: ED 21:09
DX: N13.2 Hydronephrosis with renal and ureteral calculous obstruction (principal); I10 Essential (primary) hypertension; I25.2 Old myocardial infarction
CPT/HCPCS: 36415; 74176; 80053; 81001; 83690; 85025; 87086; 93005; 96361; 96374; 96375; 99285; J1170; J1885; J2270; J2405; J7030